=== PATIENT | female | born 1970 | race Caucasian/White ===

== ENCOUNTER → 2018-03-28 18:04 | Outpatient (CLI) | payer BC, SELFPAY | PROVIDERS: Visit Provider Family Medicine | DX: N39.0 Urinary tract infection, site not specified (principal) | CPT/HCPCS: 87086; 87088 ==

== ENCOUNTER → 2020-10-04 | Outpatient (CLI) | payer BC, SELFPAY ==
[2020-10-04 12:29] VITALS: BMI 35.2
== END | disposition home or self-care (01) ==
LOC: LABSPEC 16:09
PROVIDERS: Visit Provider Physician Assistant
DX: Z20.828 Contact with and (suspected) exposure to other viral communicable diseases (principal)
CPT/HCPCS: 87635; U0003

== ENCOUNTER 2021-01-16 16:27 | Observation (INO) | payer BC, SELFPAY ==
[2020-10-04 12:29] VITALS: BMI 35.2
[2021-01-16] VITALS (11 sets, daily range): BP systolic 129–158; BP diastolic 87–106; PULSE 75–92; RESP 16–19; TEMP 36.7–36.8; O2SAT 95–99; BMI 36.7; BMI 36.3; BMI 36.4
--- NOTE | 2021-01-16 16:30 | ED.RN ---
NO OLD EKGS
--- NOTE | 2021-01-16 16:38 | EKG12_ITS ---
Test Reason : CP Blood Pressure : / mmHG Vent. Rate : 085 BPM Atrial Rate : 085 BPM P-R Int : 162 ms QRS Dur : 086 ms QT Int : 388 ms P-R-T Axes : 048 -06 022 degrees QTc Int : 461 ms Normal sinus rhythm Normal ECG Confirmed by DAYAN RIBERA, DUDLEY ([id number]), editor dictionary MARINA WILLIS ([id number]) on 01/19/2021 10:01:49 AM Referred By: RU Confirmed By:DUDLEY HANLEY MD
--- NOTE | 2021-01-16 16:40 | ED.DCSUM_ITS ---
- ER Visit Summary Date of Service: 01/16/21 Chief Complaint: [Chest pain] History of Present Illness: The patient is a 50 F [presents to the emergency department complaint of chest pain that started around noon today. Patient developed tightness and discomfort in her left back and under her left breast wh ich initially she thought was related maybe her bra being too tight so she removed it but then started having some intermittent discomfort to the left anterior chest as well and she presents for evaluation. Patient states that she had a heart attack 6 days ago and had a stent placed at [facility] 5 days ago. Patient currently on aspirin and Brilinta which she did take today. Patient states this pain feels different than the pain she had when she got her stent. Patient is not sure which artery she got the stent in but states that she had a 95% occlusion. She denies any diaphoresis or shortness of breath. She denies nausea or vomiting. Patient denies fever or recent illness.] Physical Examination: [HEENT-PERRLA, EOMI. Cranial nerves II through XII grossly intact. TMs clear. Mucous membranes moist. No adenopathy. Cardiovascular-regular rate and rhythm without murmur or ectopy Lungs-clear to auscultation, chest wall stable without crepitus or subcu em physema Abdomen-normoactive bowel sounds, soft, nontender, no rebound or rigidity, no peritoneal signs. Extremities-intact ?4, normal range of motion, normal pulses, atraumatic] Test Results: [EKG obtained on arrival shows sinus rhythm with a ventricular rate of 85 bpm with no acute ST segment changes noted.] CBC with differential showed a white of 6.0, hemoglobin 14, hematocrit 43, placed 277. Chemistries unremarkable. Troponin is 0.032. D-dimer was 0.67. Chest x-ray 1 view obtained interpreted by myself as no acute disease process and radiology in agreement. CTA of the chest was read by radiology as right middle lobe and right lower lobe pulmonary emboli with no evidence for saddle emboli or heart strain. Emergency Department Course and Treatment: [Line established on arrival. Patient placed on traffic monitor specialist. Patient had already taken her Brilinta and aspirin today therefore none was given here.] Treatment Plan: [Case was discussed with hospitalist will evaluate patient for admission] Disposition: [Admit] Impression: [Chest pain-rule out acute coronary syndrome. Right-sided pulmonary emboli] This note was generated with [employer] dictation software. It may contain incorrect words, spelling, and punctuation that were not noted in review of the chart prior to signing ED Disposition - Plan for ED Patient: Referrals: Lon Flores MD [Primary Care Provider] -
--- NOTE | 2021-01-16 16:49 | RAD_ITS ---
EXAM: XR CHEST, 1 VIEW CLINICAL INDICATION: chest pain TECHNIQUE: Frontal view of the chest. This report was created using [employer] report generation technology. COMPARISON: None. FINDINGS: LUNGS AND PLEURAL SPACES: Unremarkable. No consolidation or edema. No pneumothorax. No effusion. HEART: Unremarkable. Cardiac silhouette not enlarged. MEDIASTINUM: Central airways and mediastinal contour are unremarkable. BONES/JOINTS: Unremarkable. SOFT TISSUES: Unremarkable. TUBES, LINES AND DEVICES: EKG leads project over the chest. RAD/Chest 1 View (Portable) IMPRESSION: No acute findings in the chest. Electronically Signed: Mohsen Kelly MD (Brooks) at 17:05 EDT , Service support ,
[2021-01-16] MEDS: 0.9% Normal Saline 1,000 ML 150 ML IV (16:55)
[2021-01-16 16:56] LABS: Absolute Neutrophil Count 3.2 X10^3/uL (2.0-7.7); Basophil# 0.04 X10^3/uL; Basophil% 0.7 % (0-1); Eosinophil# 0.12 X10^3/uL; Hematocrit 42.7 % (37-47); Hemoglobin 14.4 g/dL (12.0-15.0); Lymphocyte % 31.9 % (19-41); Mean Corp Hgb Conc 33.7 g/dL (32-36); Mean Corpuscular Hgb 29.3 pg (27.0-32.0); Mean Corpuscular Volume 86.8 fL (81-99); Mean Platelet Vol. 9.3 fl (6.2-12.0); Monocyte# 0.66 X10^3/uL; Monocyte% 11.1 % (0-10); NRBC Flagged by Analyzer 0 % (0-5); Neutrophil # 3.21 X10^3/uL (2.7-7.7); Platelet Count 277 K/mm3 (150-450); RBC Distribution Width CV 13.4 % (11.6-14.6); RBC Distribution Width SD 41.5 fl (35.1-43.9); Red Blood Count 4.92 M/mm3 (4.2-5.4)
[2021-01-16 17:15] LABS: Anion Gap 5 (5-15); BUN 14 mg/dL (7-18); BUN/Creat Ratio 16.4 RATIO (10-20); Calcium,Total 8.8 mg/dL (8.5-10.1); Chloride 104 mmol/L (98-107); Creatinine, Serum 0.86 mg/dL (0.55-1.02); EST Glomerular Filtration Rate 75 mL/min (>60); Est Glom Filt Rate - Afr Amer 91 mL/min (>60); Estimated Creatinine Clearance 63.27 ml/min; Glucose 90 mg/dL (74-106); Potassium 3.8 mmol/L (3.5-5.1); Sodium Level 137 mmol/L (136-145)
[2021-01-16 17:17] LABS: D-Dimer Quantitative (DVT/PE) 0.67 FEU/ug/m (0.27-0.49)
--- NOTE | 2021-01-16 17:33 | CT_ITS ---
EXAM: CT ANGIOGRAPHY CHEST WITHOUT AND WITH INTRAVENOUS CONTRAST CLINICAL INDICATION: Chest pressure radiating to the back that started a new today TECHNIQUE: Helically acquired angiography images were obtained of the chest without and with intravenous contrast. This CT exam was performed using one or more of the following dose reduction techniques: automated exposure control, adjustment of the mA and/or kV according to patient size, and/or use of iterative reconstruction technique. This report was created using [employer] report generation technology. MIP reconstructed images were created and reviewed. CONTRAST: IV 100mL Isovue-370 COMPARISON: None. FINDINGS: PULMONARY ARTERIES: See below. AORTA: Unremarkable. Normal in caliber. No evidence of dissection. GREAT VESSELS OF AORTIC ARCH: Unremarkable. Normal in caliber. No evidence of dissection. LUNGS AND PLEURAL SPACES: There are filling defects involving right middle and lower lobe segmental pulmonary arteries (images 92-125). No mass. No pleural effusion or thickening. No pneumothorax. HEART: Unremarkable. Heart size is normal. No pericardial effusion. No signs of right heart strain. MEDIASTINUM: Unremarkable. No mediastinal or hilar adenopathy. Esophagus is unremarkable. No hiatal hernia. THYROID: Unremarkable. No thyroid lesions. BONES/JOINTS: Degenerative changes of the lumbar spine. No suspicious lytic or blastic abnormality. CT/CTA Chest W/WO Contrast IMPRESSION: Right pulmonary embolism. No saddle embolus or CT evidence of right heart strain. N.B. : The above information has been verbally conveyed by Mohsen Kelly MD (Brooks) to Niyah Nguyen MD, on 01/16/2021 18:20:43 (ET). Electronically Signed: Mohsen Kelly MD (Brooks) at 18:22 EDT , Service support ,
--- NOTE | 2021-01-16 18:25 | PCM.HP.STD ---
Problem List (1) Acute pulmonary embolism Status: Acute Qualifiers: Pulmonary embolism type: other Acute cor pulmonale presence: unspecified Qualified Code(s): I26.99 - Other pulmonary embolism without acute cor pulmonale (2) Chest pain Status: Acute Qualifiers: Chest pain type: unspecified Qualified Code(s): R07.9 - Chest pain, unspecified (3) CAD (coronary artery disease) Status: Chronic Qualifiers: Coronary Disease-Associated Artery/Lesion type: unspecified vessel or lesion type [place] vs. transplanted heart: unspecified whether [place] or transplanted heart Associated angina: angina presence unspecified Qualified Code(s): I25.10 - Atherosclerotic heart disease of [place] coronary artery without angina pectoris (4) HTN (hypertension) Status: Chronic Qualifiers: Hypertension type: essential hypertension Qualified Code(s): I10 - Essential (primary) hypertension (5) HLD (hyperlipidemia) Status: Chronic Qualifiers: Hyperlipidemia type: unspecified Qualified Code(s): E78.5 - Hyperlipidemia, unspecified (6) Former tobacco use Status: Chronic History of Present Illness Date of Admission: 01/16/21 Chief Complaint: Chest pain The patient is a 50 y/o F w/ PMHx: CAD s/p PCI, HTN, HLD, Obesity, Former Tobacco use who presents to the [facility] ED on 01/16/21 with history of onset chest pain that began at approximately noon on day of ED presentation, described as chest tightness and discomfort usually in her left back radiating down around her left breast and eventually across both sides of her chest describing the pain as dull pressure like a muscle knot with intermittent twinges of pain across her chest rating the pain at its worst 4-10 in severity, currently improved and reports 0 out of 10 pain upon evaluation. Patient does note that pain onset at noon with a solid 3 hours of ongoing discomfort now transition following this to intermittent and now subsided. Patient with history of recent specific heart attack nearing 1 week prior with PCI at [facility] 5 days prior to current presentation compliant with both her aspirin and Brilinta but notes the pain is different than when she initially presented with her heart attack. She denies any associated diaphoresis, dyspnea, nausea or emesis. Work-up in the ED included T 98.2, heart rate 88, BP 158/106, respiratory rate 18, 99% on room air, unremarkable CBC, D-dimer 0.67, BMP unremarkable, Trop 0.032, CXR with no acute cardiopulmonary findings, EKG with sinus rhythm with no acute evidence of ischemia, CTPA acute R sided pulmonary emboli with no evidence of saddle embolis or strain. In the ED patient administered NS, NG. Past Medical History Past Medical History (Chronic Problems): Chronic Problems CAD (coronary artery disease) (Chronic) HTN (hypertension) (Chronic) HLD (hyperlipidemia) (Chronic) Former tobacco use (Chronic) Medical History: Medical History (Last Updated 10/04/20 @ 12:32 by Fanta Pedraza) Arthritis M19.90 Hay fever J30.1 Seasonal allergies J30.2 Allergies tree nut Allergy (Verified 01/16/21 16:31) unknown fresh fruit and vegetables Allergy (Uncoded 01/16/21 16:31) unknown Home Medications: Ambulatory Orders Medication Instructions Recorded Aspirin 81 mg PO DAILY 01/16/21 Atorvastatin Calcium 40 mg PO DAILY 01/16/21 Metoprolol Tartrate 25 mg PO DAILY 01/16/21 Ticagrelor [Brilinta] 90 mg PO DAILY 01/16/21 Surgical History: Surgical History (Last Updated 10/04/20 @ 12:32 by Fanta Pedraza) H/O dilation and curettage Z98.890 Surgical History: - - PCI x1, D&C, tonsillectomy. 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 Lives: Spouse/ Significant Other Smoking Status: Former smoker - Patient quit cigarette tobacco usage in 1995 noted that she started with less than 1/2 pack/day cigarette tobacco usage at the age of 18 until quitting. Tobacco Use: Non-smoker Alcohol: None Drugs: None - *Family History Maternal History Items: Cancer - Mother with history of skin cancer., Diabetes, Heart Disease - Mother with a history of [place] at age 77., - - Mother with also a history of blood clots. Paternal History Items: Cancer - Father with reported history of cancer in his colon however this was felt not to be primary., Hypertension Review of Systems Constitutional: Reports: Fatigue. Denies: Chills, Fever, Weight Change HEENT: Denies: Head Aches, Sinus Congestion, Sinus Drainage Cardiovascular: Reports: Chest Pain, Chest Pressure, Chest Tightness. Denies: Light Headedness, Orthopnea, Palpitations, Syncope Respiratory: Denies: Cough, Shortness of Breath, Shortness of breath at rest, Shortness of breath upon exertion, Sputum production Gastrointestinal: Denies: Abdominal Pain, Nausea, Vomiting Genitourinary: Denies: Dysuria Musculoskeletal: Reports: Back Pain. Denies: Joint Pain, Joint Tenderness Skin: Denies: Rash, Wounds Neurological: Denies: Numbness, Tingling, Focal weakness Psychiatric: Denies: Anxiety, Depression, Homicidal Ideations, Suicidal Ideations Hematologic/ Lymphatic: Denies: Easy Bruising, Easy Bleeding VTE Information - Inpt Only VTE Present on Admission: No VTE Mechan Device Prophylaxis: SCD's VTE Pharm Prophylaxis ordered?: Yes VTE Suspected: Suspected PE Patient Problems: Active and Suspected Problems (Last Updated 10/04/20 @ 12:32 by Fanta Pedraza) Acute pulmonary embolism (Acute) Chest pain (Acute) Subjective: Patient seated upright in the ED bed, no acute distress, notes currently chest pain is completely subsided. Objective: Physical Examination: General: awake, alert, oriented x 3 and cooperative, seated upright in the ED bed in no apparent distress. Skin: normal color, turgor, no icterus, cyanosis. HEENT: AT/NC, EOMI, PERRLA, mildly dry MM, no carotid bruits or JVD noted. Lungs: Diminished breath sounds, mildly decreased effort, no obvious distress, no rales, ronchi or wheezing. Heart: Regular rate and rhythm; no gallop, rub audible. Abdomen: soft, obese, NTTP, ND, normal BS, no HSM. Extremities: no cyanosis, clubbing, or edema. Neurological: patient awake, alert, oriented as noted; cognitive function intact; pupils equally reactive to light and accomodation; cranial nerves II-XII grossly normal, moving all 4 extremities, no focal deficits, strength mildly global decrease given acute presentation. Psychiatric: affect appears mildly fatigued otherwise normal, no acute evidence of depressive or anxiety feelings. - Physical Exam Vitals/I&O's: Vital Signs Temp Pulse Resp BP Pulse Ox 98.2 F 75 18 129/88 H 98 01/16/21 16:28 01/16/21 18:00 01/16/21 18:00 01/16/21 18:00 01/16/21 18:00 Oxygen Delivery Method Room Air Weight: 200 lb 13.458 oz Body Mass Index (BMI) 36.7 Laboratory Results 01/16/21 16:50: WBC 6.0, RBC 4.92, Hgb 14.4, Hct 42.7, MCV 86.8, MCH 29.3, MCHC 33.7, RDW Std Deviation 41.5, RDW Coeff of Trini 13.4, Plt Count 277, MPV 9.3, Immature Gran % (Auto) 0.300, Neut % (Auto) 54.0, Lymph % (Auto) 31.9, [place] % (Auto) 11.1 H, Eos % (Auto) 2.0, Baso % (Auto) 0.7, Absolute Neuts (auto) 3.2, Absolute Lymphs (auto) 1.90, Nucleated RBC % 0 01/16/21 16:50: Sodium 137, Potassium 3.8, Chloride 104, Carbon Dioxide 28.0, Anion Gap 5, BUN 14, Creatinine 0.86, Estim Creat Clear Calc 63.27, Est GFR (MDRD) Af Amer 91, Est GFR (MDRD) Non-Af 75, BUN/Creatinine Ratio 16.4, Glucose 90, Calcium 8.8, Troponin I 0.032 01/16/21 16:50: D-Dimer Quant (PE/DVT) 0.67 H* Current Medications Sodium Chloride () 1,000 mls @ 150 mls/hr IV .Q6H40M MU Last Admin: 01/16/21 16:55 Dose: 150 mls/hr Documented by: Nitroglycerin (Nitroglycerin Sl (Ed/Img/Cath) 0.4 Mg Tablet) 0.4 mg SL Q5M PRN PRN Reason: Chest pain Assessment/Plan All Active Problems (Last Updated 10/04/20 @ 12:32 by Fanta Pedraza) Acute pulmonary embolism (Acute) Chest pain (Acute) COVID-19 ruled out (Acute) The patient is a 50 y/o F w/ PMHx: CAD s/p PCI, HTN, HLD, Obesity, Former Tobacco use who presents to the [facility] ED on 01/16/21 with history of onset chest pain that began at approximately noon on day of ED presentation, described as chest tightness and discomfort usually in her left back radiating down around her left breast and eventually across both sides of her chest describing the pain as dull pressure like a muscle knot with intermittent twinges of pain across her chest rating the pain at its worst 4-10 in severity, currently improved and reports 0 out of 10 pain upon evaluation. 1. Acute chest pain secondary to Acute Pulmonary Embolism: EKG without acute findings, CXR no acute process, D-dimer elevated, CTPA with acute right-sided pulmonary emboli with no evidence of saddle embolus or strain, troponin 0.032. Will admit to PCU, maintain on cardiac telemetry, cycle cardiac enzymes given recent intervention, given no strain will defer echocardiogram at this time. Given history of miscarriages and maternal history of blood clots will obtain hypercoagulable panel and following this will initiate on therapeutic Lovenox regimen with pending AM insurance oral regimen investigation. May consider Cardiology consultation if altered EKGs, elevated cardiac enzymes or chest pain ongoing concerns. 2. CAD: Status post recent PCI of unclear artery 5 days prior to current presentation at [facility], will maintain on aspirin, Brilinta, metoprolol and atorvastatin. Records requested from [place] facility. 3. Hypertension: Continue home regimen including metoprolol with hold parameters however BP above goal upon ED presentation therefore may necessitate alteration/addition to her regimen, PRN hydralazine. 4. Hyperlipidemia: Continue home statin regimen. AM FLP. 5. Obesity: Weight loss and lifestyle changes encouraged. 6. Former tobacco use: Encourage continued tobacco cessation. 7. DVT prophylaxis: SCDs, Lovenox. OBSV E&M: [id number] Initial observation care L3
--- NOTE | 2021-01-16 20:00 | EKG12_ITS ---
Test Reason : AM EKG Blood Pressure : / mmHG Vent. Rate : 068 BPM Atrial Rate : 068 BPM P-R Int : 174 ms QRS Dur : 088 ms QT Int : 416 ms P-R-T Axes : 047 002 008 degrees QTc Int : 442 ms Normal sinus rhythm Normal ECG When compared with ECG of 16-JAN-2021 20:03, MANUAL COMPARISON REQUIRED, DATA IS UNCONFIRMED Confirmed by DAYAN RIBERA, DUDLEY ([id number]), photo editor MARINA WILLIS ([id number]) on 01/19/2021 10:22:15 AM Referred By: DR GARDINER Confirmed By:DUDLEY HANLEY MD
[2021-01-16 20:02] LABS: Partial Thromboplast Time 30.8 Seconds (24.1-36.2); Prothrombin Time (Protime)PT. 12.8 SECONDS (11.7-14.9)
[2021-01-16 20:07] LABS: BNP,B-Type NATRIURETIC PEPTIDE 5.1 pg/mL (0-100)
[2021-01-16] MEDS: 0.9% Normal Saline 1,000 ML 100 ML IV (20:09)
[2021-01-16] MEDS: 0.9% Saline Lock 10 ML Syringe IV (20:10)
[2021-01-16 20:19] LABS: Magnesium 1.8 mg/dL (1.6-2.6)
[2021-01-16] MEDS: Enoxaparin 100 MG/ML Syringe 90 MG SC (21:07)
[2021-01-16] MEDS: Pantoprazole Sodium 40 MG Tablet PO (21:07)
[2021-01-16] MEDS: Atorvastatin Calcium 40 MG Tablet PO (22:33)
[2021-01-16] MEDS: TICAGRELOR 90 MG TABLET PO (22:33)
[2021-01-16] MEDS: Metoprolol Tartrate 25 MG Tablet PO (22:33)
[2021-01-17] VITALS (7 sets, daily range): BP systolic 126–140; BP diastolic 84–85; PULSE 69–76; RESP 16–18; TEMP 36.4–36.6; O2SAT 96–97
--- NOTE | 2021-01-17 05:55 | EKG12_ITS ---
Test Reason : CP ADMIT Blood Pressure : / mmHG Vent. Rate : 072 BPM Atrial Rate : 072 BPM P-R Int : 164 ms QRS Dur : 084 ms QT Int : 394 ms P-R-T Axes : 044 000 007 degrees QTc Int : 431 ms Normal sinus rhythm Normal ECG When compared with ECG of 16-JAN-2021 16:33, MANUAL COMPARISON REQUIRED, DATA IS UNCONFIRMED Confirmed by DAYAN RIBERA, DUDLEY ([id number]), video news editor MARINA WILLIS ([id number]) on 01/19/2021 10:22:39 AM Referred By: DR GARDINER Confirmed By:DUDLEY HANLEY MD
[2021-01-17 06:02] LABS: Absolute Lymphocyte Count 1.67 X10^3/uL (0.83-4.51); Absolute Neutrophil Count 2.5 X10^3/uL (2.0-7.7); Basophil# 0.03 X10^3/uL; Basophil% 0.6 % (0-1); Eosinophils% 2.1 % (0-5); Hematocrit 43.4 % (37-47); Lymphocyte # 1.67 X10^3/ul (4.0); Lymphocyte % 34.9 % (19-41); Mean Corp Hgb Conc 32.3 g/dL (32-36); Mean Corpuscular Hgb 28.7 pg (27.0-32.0); Mean Corpuscular Volume 89.1 fL (81-99); Mean Platelet Vol. 9.6 fl (6.2-12.0); Monocyte# 0.49 X10^3/uL; Monocyte% 10.2 % (0-10); NRBC Flagged by Analyzer 0 % (0-5); Neutrophil # 2.49 X10^3/uL (2.7-7.7); Platelet Count 268 K/mm3 (150-450); RBC Distribution Width CV 13.3 % (11.6-14.6); RBC Distribution Width SD 43.4 fl (35.1-43.9); Red Blood Count 4.87 M/mm3 (4.2-5.4); White Blood Count 4.8 K/mm3 (4.4-11.0)
[2021-01-17 06:25] LABS: ALB/GLOB Ratio 0.7 RATIO (0.9-2.4); AST(SGOT) 37 U/L (15-37); Alanine Aminotransfer ALT/SGPT 37 U/L (13-56); Albumin, Serum 2.7 g/dL (3.2-5.0); Alkaline Phosphatase 57 U/L (45-117); Anion Gap 5 (5-15); BUN 9 mg/dL (7-18); BUN/Creat Ratio 11.8 RATIO (10-20); Chloride 110 mmol/L (98-107); Creatinine, Serum 0.76 mg/dL (0.55-1.02); EST Glomerular Filtration Rate 86 mL/min (>60); Est Glom Filt Rate - Afr Amer 103 mL/min (>60); Glucose 104 mg/dL (74-106); Potassium 3.6 mmol/L (3.5-5.1); Protein, Total 6.7 g/dL (6.4-8.2); Sodium Level 139 mmol/L (136-145)
[2021-01-17] MEDS: TICAGRELOR 90 MG TABLET PO (08:57)
[2021-01-17] MEDS: Metoprolol Tartrate 25 MG Tablet PO (08:57)
[2021-01-17] MEDS: Pantoprazole Sodium 40 MG Tablet PO (08:57)
[2021-01-17] MEDS: Aspirin 81 MG TAB.CHEW PO (08:57)
[2021-01-17] MEDS: Enoxaparin 100 MG/ML Syringe 90 MG SC (08:58)
--- NOTE | 2021-01-17 10:39 | DCINST_ITS ---
- Discharge Diagnoses Current Active Problems: Current Active and Chronic Problems Acute pulmonary embolism (Acute) Chest pain (Acute) CAD (coronary artery disease) (Chronic) HTN (hypertension) (Chronic) HLD (hyperlipidemia) (Chronic) Former tobacco use (Chronic) You will use the following diet at home:: Cardiac Discharge Activity: Return to Normal Activity Call your doctor if you observe: Shortness of breath, Dizziness, Fainting spells, Chest pain Allergies/Adverse Reactions: Allergies tree nut Allergy (Verified 01/16/21 20:01) unknown fresh fruit and vegetables Allergy (Uncoded 01/16/21 20:01) unknown Medications to take at Discharge Aspirin 81 mg PO DAILY 01/16/21 Atorvastatin Calcium 40 mg PO QHS 01/16/21 Metoprolol Tartrate 25 mg PO BID 01/16/21 Ticagrelor [Brilinta] 90 mg PO BID 01/16/21 Apixaban [Eliquis] 10 mg PO BID #70 tab 01/17/21 Pantoprazole Sodium [Protonix] 40 mg PO DAILY #30 tab 01/17/21 The following prescriptions were given: Apixaban [Eliquis] 10 mg PO BID #70 tab Transmission Status: Pending to [facility]/pharmacy #[id number] Pantoprazole Sodium [Protonix] 40 mg PO DAILY #30 tab Transmission Status: Pending to [facility]/pharmacy #[id number] Primary Care Physician: Lon Flores MD [Primary Care Provider] - Please follow up with your Primary Care Physician in: 1 Week Test Results: Test results from this visit will be discussed in further detail at your follow- up appointment, if applicable. Please Follow Up With: Anibal Rojas MD - Hematology When: 4-6 Weeks Please Follow Up With: Primary Cardiogist When: As scheduled Proposed Discharge Date: 01/17/21
--- NOTE | 2021-01-17 10:42 | DS.PCM_ITS ---
<Giselle Jackson FUNNEL SETTER - Last Filed: 01/17/21 10:57> Discharge Date and Diagnosis - Problem List Patient Problems: Active and Suspected Problems (Last Updated 10/04/20 @ 12:32 by Fanta Pedraza) Acute pulmonary embolism (Acute) Chest pain (Acute) Date of Admission: 01/16/21 Date of Discharge: 01/17/21 - Primary Discharge Diagnosis Acute Problems: Active Problems (Last Updated 10/04/20 @ 12:32 by Fanta Pedraza) 1. Acute pulmonary embolism 2. CAD with recent PCI 3. Hypertension 4. Hyperlipidemia 5. Obesity 6. Former tobacco use - Secondary Discharge Diagnosis Chronic Problems: Chronic Problems CAD (coronary artery disease) (Chronic) HTN (hypertension) (Chronic) HLD (hyperlipidemia) (Chronic) Former tobacco use (Chronic) Hospital Course and Treatment Imaging Results: Diagnostic Data Chest X-Ray 01/16/21 16:49 IMPRESSION: No acute findings in the chest. Electronically Signed: Mohsen Kelly MD (Brooks) at 17:05 EDT , Service support , Chest CTA 01/16/21 17:33 IMPRESSION: Right pulmonary embolism. No saddle embolus or CT evidence of right heart strain. N.B. : The above information has been verbally conveyed by Mohsen Kelly MD (Brooks) to Niyah Nguyen MD, on 01/16/2021 18:20:43 (ET). Electronically Signed: Mohsen Kelly MD (Brooks) at 18:22 EDT , Service support , ADDENDUM: 01/16/21 1829 IMPRESSION: Right pulmonary embolism. No saddle embolus or CT evidence of right heart strain. N.B. : The above information has been verbally conveyed by Mohsen Kelly MD (Brooks) to Niyah Nguyen MD, on 01/16/2021 18:20:43 (ET). Electronically Signed: Mohsen Kelly MD (Brooks) at 18:22 EDT , Service support , Operations: None Procedures: None Summary of Care Provided: The patient is a 50 year old F admitted 01/16/2021 due to chest pain. 1. Acute pulmonary embolism- CTA showed right pulmonary embolism, no saddle embolus or evidence of right heart strain. Initiated on Eliquis 10 mg twice daily for 7 days followed by 5 mg daily. Patient was referred to hematology given history of miscarriages and maternal history of blood clots. Hypercoagulable panel pending. Oxygen stable on room air. Placed on GI prophylaxis with Protonix given addition of Eliquis along with aspirin and Brilinta. Follow-up with PCP in 1 week. Follow-up with hematology in 4 to 6 weeks. 2. CAD with recent PCI-recent PCI 5 days prior to admission. Continue aspirin, Brilinta, metoprolol, atorvastatin. Follow-up with cardiology as scheduled. 3. Hypertension-stable, continue metoprolol. 4. Hyperlipidemia-continue statin. 5. Obesity-encouraged diet lifestyle modifications. 6. Former tobacco use- encouraged continued cessation. Patient seen and examined prior to discharge. Physical assessment as noted below. Patient is stable for discharge with follow up recommendations as noted above. This patient was seen by PERLA Fong under the supervision of Dr. Singer. Patient Problems: Active and Suspected Problems (Last Updated 10/04/20 @ 12:32 by Fanta Pedraza) Acute pulmonary embolism (Acute) Chest pain (Acute) - Physical Exam Vitals/I&O's: Vital Signs Temp Pulse Resp BP Pulse Ox 97.6 F L 76 16 126/84 H 97 01/17/21 08:55 01/17/21 08:57 01/17/21 08:55 01/17/21 08:57 01/17/21 08:55 Oxygen Delivery Method Room Air Weight: 199 lb 1.239 oz Body Mass Index (BMI) 36.3 Intake and Output for Last 24 Hours 01/15/21 01/16/21 01/17/21 22:59 23:59 23:59 Intake Total 716.67 / 716.67 Balance 716.67 / 716.67 General: Alert, Oriented x3, Cooperative HEENT: Atraumatic, PERRLA, EOMI, Normocephalic Neck: Supple, No JVD, Negative Carotid Bruits Lungs: Clear to auscultation, Normal air movement Cardiovascular: Regular rate, No murmurs Abdomen: Bowel Sounds Present, Soft, Non Tender Extremities: No clubbing, No cyanosis, No edema, Capillary Refill Less than 3 Seconds Skin: No rashes, No breakdown Musculoskeletal: No Tenderness to Palpation of Joints or Extremities Neurological: Cranial nerves II-XII grossly intact, Neuro grossly intact Psych/Mental Status: Normal Affect, Appropriate Laboratory Results 01/16/21 16:50: WBC 6.0, RBC 4.92, Hgb 14.4, Hct 42.7, MCV 86.8, MCH 29.3, MCHC 33.7, RDW Std Deviation 41.5, RDW Coeff of Trini 13.4, Plt Count 277, MPV 9.3, Immature Gran % (Auto) 0.300, Neut % (Auto) 54.0, Lymph % (Auto) 31.9, [place] % (Auto) 11.1 H, Eos % (Auto) 2.0, Baso % (Auto) 0.7, Absolute Neuts (auto) 3.2, Absolute Lymphs (auto) 1.90, Nucleated RBC % 0 01/16/21 16:50: Sodium 137, Potassium 3.8, Chloride 104, Carbon Dioxide 28.0, Anion Gap 5, BUN 14, Creatinine 0.86, Estim Creat Clear Calc 63.27, Est GFR (MDRD) Af Amer 91, Est GFR (MDRD) Non-Af 75, BUN/Creatinine Ratio 16.4, Glucose 90, Calcium 8.8, Troponin I 0.032 01/16/21 16:50: D-Dimer Quant (PE/DVT) 0.67 H* 01/16/21 16:50: B-Natriuretic Peptide 5.1 01/16/21 19:15: PT 12.8, INR 1.0, APTT 30.8 01/16/21 19:15: Protein C Antigen Pending, Functional Protein C Pending, Prot C Funct Activity Pending, Antithrombin III Ag Pending, Func Antithrombin III Pending, Factor V Leiden Mutat Pending, Beta-2-GPI IgG Ab Pending, Beta-2-GPI IgA Ab Pending, Beta-2-GPI IgM Ab Pending, Anti-Cardiolipin IgG Ab Pending, Anti-Cardiolipin IgM Ab Pending, Factor II DNA Analysis Pending 01/16/21 20:00: Magnesium 1.8 01/16/21 20:00: Troponin I 0.034 01/16/21 22:58: Troponin I 0.037 01/17/21 05:20: WBC 4.8, RBC 4.87, Hgb 14.0, Hct 43.4, MCV 89.1, MCH 28.7, MCHC 32.3, RDW Std Deviation 43.4, RDW Coeff of Trini 13.3, Plt Count 268, MPV 9.6, Immature Gran % (Auto) 0.200, Neut % (Auto) 52.0, Lymph % (Auto) 34.9, [place] % (Auto) 10.2 H, Eos % (Auto) 2.1, Baso % (Auto) 0.6, Absolute Neuts (auto) 2.5, Absolute Lymphs (auto) 1.67, Nucleated RBC % 0 01/17/21 05:20: Sodium 139, Potassium 3.6, Chloride 110 H, Carbon Dioxide 24.0, Anion Gap 5, BUN 9, Creatinine 0.76, Estim Creat Clear Calc 71.60, Est GFR (MDRD) Af Amer 103, Est GFR (MDRD) Non-Af 86, BUN/Creatinine Ratio 11.8, Glucose 104, Calcium 8.0 L, Total Bilirubin 0.40, AST 37, ALT 37, Alkaline Phosphatase 57, Total Protein 6.7, Albumin 2.7 L, Globulin 4.0, Albumin/Globulin Ratio 0.7 L Current Medications Acetaminophen (Acetaminophen 325 Mg Tablet) 650 mg PO Q6H PRN PRN PRN Reason: Pain Score 1-10/Temp > 100.7 F Al Hydroxide/Mg Hydroxide (Mag Hydrox/Al Hydrox/Simeth 30 Ml Udc) 30 ml PO Q6H PRN PRN PRN Reason: Gastric Burning Albuterol Sulfate (Albuterol 2.5 Mg/3 Ml Vial.Neb.) 2.5 mg INHALATION Q2H PRN PRN PRN Reason: Dyspnea, wheezing Aspirin ([facility] 81 Mg Tab.Chew) [facility] Last Admin: 01/17/21 08:57 Dose: 81 mg Documented by: Atorvastatin Calcium (Atorvastatin Calcium 40 Mg Tablet) 40 mg PO QHS [facility] Last Admin: 01/16/21 22:33 Dose: 40 mg Documented by: Enoxaparin Sodium (Enoxaparin 100 Mg/Ml Syringe) 90 mg SC Q12 [facility] Last Admin: 01/17/21 08:58 Dose: 90 mg Documented by: Guaifenesin (Guaifenesin 10 Ml Udc (200mg/10ml)) 20 ml PO Q4H PRN PRN PRN Reason: COUGH Hydralazine HCl (Hydralazine 20 Mg/Ml Vial) 10 mg IV Q4H PRN PRN PRN Reason: SBP > 160 Sodium Chloride () 250 mls @ 15 mls/hr IV .[id number] PRN PRN Reason: Saline Flush Sodium Chloride () 250 mls @ 15 mls/hr IV .[id number] PRN PRN Reason: Additional IVPB Infusion Magnesium Hydroxide (Magnesium Hydroxide 30 Ml Udc) 30 ml PO DAILY PRN PRN PRN Reason: Constipation Metoprolol Tartrate (Metoprolol Tartrate 25 Mg Tablet) 25 mg PO BID [facility] Last Admin: 01/17/21 08:57 Dose: 25 mg Documented by: Morphine Sulfate (Morphine 2 Mg/Ml Syringe) 2 mg IV Q3H PRN PRN PRN Reason: Pain Score 6-10 Nitroglycerin (Nitroglycerin (Inpatient Use) 0.4 Mg Tab.Subl) 0.4 mg SL Q5M PRN PRN Reason: CARDIAC/CHEST PAIN Ondansetron HCl (Ondansetron 4 Mg/2 Ml Vial) 4 mg IV Q8H PRN PRN PRN Reason: NAUSEA/VOMITING Oxycodone HCl (Oxycodone 5 Mg Tablet) 5 mg PO Q4H PRN PRN PRN Reason: Pain Score 4-5 Pantoprazole Sodium (Pantoprazole Sodium 40 Mg Tablet) 40 mg PO BID [facility] Last Admin: 01/17/21 08:57 Dose: 40 mg Documented by: Prochlorperazine Edisylate (Prochlorperazine 10 Mg/2 Ml Vial) 5 mg IV Q4H PRN PRN PRN Reason: Breakthrough Nausea/Vomiting Psyllium Hydrophilic Mucilloid (Psyllium 1 Packet) 1 packet PO DAILY PRN PRN PRN Reason: Constipation Senna/Docusate Sodium (Senna/Docusate Sodium 1 Tablet) 2 tablet PO BID PRN PRN PRN Reason: Constipation Sodium Chloride (0.9% Saline Lock 10 Ml Syringe) 10 - 40 ml IV UD PRN PRN Reason: SALINE FLUSH Last Admin: 01/16/21 20:10 Dose: 10 ml Documented by: Temazepam (Temazepam 15 Mg Capsule) 15 mg PO QHS PRN PRN PRN Reason: INSOMNIA Throat Lozenges (Benzocaine/Menthol 1 Lozenge) 1 lozenge MUCOUS MEM Q2H PRN PRN PRN Reason: SORE THROAT Ticagrelor (Ticagrelor 90 Mg Tablet) 90 mg PO BID [facility] Last Admin: 01/17/21 08:57 Dose: 90 mg Documented by: Discharge Diet: Low fat/ Low Cholesterol Discharge Activity: Return to Normal Activity Call your doctor if you observe: Shortness of breath, Dizziness, Fainting spells, Chest pain Home Medications: Medications to take at Discharge Aspirin 81 mg PO DAILY 01/16/21 Atorvastatin Calcium 40 mg PO QHS 01/16/21 Metoprolol Tartrate 25 mg PO BID 01/16/21 Ticagrelor [Brilinta] 90 mg PO BID 01/16/21 Apixaban [Eliquis] 10 mg PO BID #70 tab 01/17/21 Pantoprazole Sodium [Protonix] 40 mg PO DAILY #30 tab 01/17/21 Following Prescriptions Were Given to Patient: Apixaban [Eliquis] 10 mg PO BID #70 tab Transmission Status: Received by [facility]/pharmacy #[id number] Pantoprazole Sodium [Protonix] 40 mg PO DAILY #30 tab Transmission Status: Received by [facility]/pharmacy #[id number] Primary Care Physician: Lon Flores MD [Primary Care Provider] - Please follow up with your Primary Care Physician in: 1 Week Please Follow Up With: Anibal Rojas MD - Hematology When: 4-6 Weeks Please Follow Up With: Primary Cardiogist When: As scheduled Disposition: Home Minutes spent on discharge:: 35 Patient Condition:: Stable Medical Necessity - Tobacco Use Smoking Status: Former smoker Tobacco Use: Non-smoker Meaningful Use Info Meaningful Use Diagnoses (Choose all that apply): VTE - VTE Anticoag overlap given w/in hospital stay or rx'd at nm?: Yes Pt receive overlap for 5 days?: Yes <Wayne Singer F - Last Filed: 01/17/21 15:12> Discharge Date and Diagnosis - Primary Discharge Diagnosis Acute Problems: Active Problems (Last Updated 10/04/20 @ 12:32 by Fanta Pedraza) Acute pulmonary embolism (Acute) Chest pain (Acute) - Secondary Discharge Diagnosis Chronic Problems: Chronic Problems CAD (coronary artery disease) (Chronic) HTN (hypertension) (Chronic) HLD (hyperlipidemia) (Chronic) Former tobacco use (Chronic) Hospital Course and Treatment Summary of Care Provided: The patient is a 50 year old F [] - Physical Exam Vitals/I&O's: Vital Signs Temp Pulse Resp BP Pulse Ox 97.6 F L 76 16 126/84 H 97 01/17/21 10:53 01/17/21 10:53 01/17/21 10:53 01/17/21 10:53 01/17/21 10:53 Oxygen Delivery Method Room Air Weight: 199 lb 1.239 oz Body Mass Index (BMI) 36.3 Intake and Output for Last 24 Hours 01/15/21 01/16/21 01/17/21 22:59 23:59 23:59 Intake Total 716.67 / 716.67 Balance 716.67 / 716.67 Laboratory Results 01/16/21 16:50: WBC 6.0, RBC 4.92, Hgb 14.4, Hct 42.7, MCV 86.8, MCH 29.3, MCHC 33.7, RDW Std Deviation 41.5, RDW Coeff of Trini 13.4, Plt Count 277, MPV 9.3, Immature Gran % (Auto) 0.300, Neut % (Auto) 54.0, Lymph % (Auto) 31.9, [place] % (Auto) 11.1 H, Eos % (Auto) 2.0, Baso % (Auto) 0.7, Absolute Neuts (auto) 3.2, Absolute Lymphs (auto) 1.90, Nucleated RBC % 0 01/16/21 16:50: Sodium 137, Potassium 3.8, Chloride 104, Carbon Dioxide 28.0, Anion Gap 5, BUN 14, Creatinine 0.86, Estim Creat Clear Calc 63.27, Est GFR (MDRD) Af Amer 91, Est GFR (MDRD) Non-Af 75, BUN/Creatinine Ratio 16.4, Glucose 90, Calcium 8.8, Troponin I 0.032 01/16/21 16:50: D-Dimer Quant (PE/DVT) 0.67 H* 01/16/21 16:50: B-Natriuretic Peptide 5.1 01/16/21 19:15: PT 12.8, INR 1.0, APTT 30.8 01/16/21 19:15: Protein C Antigen Pending, Functional Protein C Pending, Prot C Funct Activity Pending, Antithrombin III Ag Pending, Func Antithrombin III Pending, Factor V Leiden Mutat Pending, Beta-2-GPI IgG Ab Pending, Beta-2-GPI IgA Ab Pending, Beta-2-GPI IgM Ab Pending, Anti-Cardiolipin IgG Ab Pending, Anti-Cardiolipin IgM Ab Pending, Factor II DNA Analysis Pending 01/16/21 20:00: Magnesium 1.8 01/16/21 20:00: Troponin I 0.034 01/16/21 22:58: Troponin I 0.037 01/17/21 05:20: WBC 4.8, RBC 4.87, Hgb 14.0, Hct 43.4, MCV 89.1, MCH 28.7, MCHC 32.3, RDW Std Deviation 43.4, RDW Coeff of Trini 13.3, Plt Count 268, MPV 9.6, Immature Gran % (Auto) 0.200, Neut % (Auto) 52.0, Lymph % (Auto) 34.9, [place] % (Auto) 10.2 H, Eos % (Auto) 2.1, Baso % (Auto) 0.6, Absolute Neuts (auto) 2.5, Absolute Lymphs (auto) 1.67, Nucleated RBC % 0 01/17/21 05:20: Sodium 139, Potassium 3.6, Chloride 110 H, Carbon Dioxide 24.0, Anion Gap 5, BUN 9, Creatinine 0.76, Estim Creat Clear Calc 71.60, Est GFR (MDRD) Af Amer 103, Est GFR (MDRD) Non-Af 86, BUN/Creatinine Ratio 11.8, Glucose 104, Calcium 8.0 L, Total Bilirubin 0.40, AST 37, ALT 37, Alkaline Phosphatase 57, Total Protein 6.7, Albumin 2.7 L, Globulin 4.0, Albumin/Globulin Ratio 0.7 L Addendum: Dr. Singer I personally examined the patient and reviewed the chart. I agree with the above. 50-year-old female who was recently admitted to the outside hospital for stent secondary to a non-STEMI presents to the hospital with chest pain. She was found to have a PE on CTA. She is feeling better today and states that the chest pain is much improved. She denies any shortness of breath. In discussion with her about her history she does have a history of miscarriages and her mother did have a history of blood clots in her lower extremities. She states that her sister had difficulty getting but she is unsure as to why but did finally get at the age of 40. She is currently tolerating Eliquis however she is also on aspirin and Brilinta as well secondary to her new stent therefore I do recommend that she follow-up with hematology as an outpatient. I did discuss with her the bleeding risk of being on 2 antiplatelets as well as the Eliquis and hopefully after a year she will be able to discontinue one of the antiplatelets and continue with the Eliquis indefinitely. Hypercoagulable panel was obtained on admission in the ER which would be followed up as an outpatient by her PCP and/or hematology. OBSV E&M: [id number] Observation care discharge
--- NOTE | 2021-01-17 11:49 | CASEMGMT ---
Pt to be sent home on Eliquis at discharge and med e-scribed to [facility] previously. Call to [facility] to get coverage/co-pay at this time and per pharmacist, pt's co-pay is $50 at this time. Pt provided with a 30 day free trial card and $10 co-pay card at this time. Pt voices no further questions/concerns/needs and ready for discharge at this time. SStliborio HERNANDEZ CM
--- NOTE | 2021-01-17 11:58 | PHA.DC.MC ---
Pharmacy Service has performed discharge medication reconciliation and counseling for this patient. 1. APIXABAN 10MG PO BID X 7 DAYS, THEN 5MG PO BID THEREAFTER 2. PANTOPRAZOLE 40MG PO DAILY The patient's discharge medication list was reviewed for discrepancies and discrepancies were resolved. Home Medications Aspirin 81 mg PO DAILY 01/16/21 Atorvastatin Calcium 40 mg PO QHS 01/16/21 Metoprolol Tartrate 25 mg PO BID 01/16/21 Ticagrelor [Brilinta] 90 mg PO BID 01/16/21 Apixaban [Eliquis] 10 mg PO BID #70 tab 01/17/21 Pantoprazole Sodium [Protonix] 40 mg PO DAILY #30 tab 01/17/21 The patient was counseled on the following discharge medications and changes in medications for homegoing were reviewed. The Reason for Use, instructions for use, and potential side effects were reviewed for all new medications. The patient's questions regarding all of their medications were answered. The patient was able to verbally demonstrate an understanding of their discharge medications.
[2021-01-21 12:08] LABS: Protein C Antigen 80 % (60-150); Protein C, Functional 98 % (73-180)
[2021-01-21 13:05] LABS: Anti-Cardiolipin Ab, IgG, Qn < 9 GPL U/mL (0-14); Anti-Cardiolipin Ab, IgM, Qn 12 MPL U/mL (0-12); Anti-Thrombin 3 AG, Immunol 59 % (72-124); Antithrombin 3 Function 81 % (75-135); Beta-2-Glycoprotein I IgA <9 (0-25); Beta-2-Glycoprotein I IgG <9 (0-20); Beta-2-Glycoprotein I IgM 11 (0-32)
== END 2021-01-17 10:40 | disposition home or self-care (01) ==
LOC: ED 17:07 → PCU 18:56
PROVIDERS: Admitting Provider Family Medicine; Emergency Provider Emergency Medicine; PCP Family Medicine; Visit Provider Family Medicine
DX: I26.99 Other pulmonary embolism without acute cor pulmonale (principal); I25.10 Atherosclerotic heart disease of native coronary artery without angina pectoris; I10 Essential (primary) hypertension; E78.5 Hyperlipidemia, unspecified; E66.9 Obesity, unspecified; I25.2 Old myocardial infarction; M19.90 Unspecified osteoarthritis, unspecified site; Z87.891 Personal history of nicotine dependence; Z79.899 Other long term (current) drug therapy; Z79.82 Long term (current) use of aspirin; Z68.36 Body mass index [BMI] 36.0-36.9, adult
CPT/HCPCS: 36415; 71045; 71275; 80048; 80053; 81240; 81241; 83735; 83880; 84484; 85025; 85300; 85301; 85302; 85303; 85379; 85610; 85730; 86146; 86147; 93005; 96360; 96361; 96372; 99218; 99251; 99284; J7030; Q9967; A4216; G0378; G0463

== ENCOUNTER → 2021-04-25 09:00 | Outpatient (CLI) | payer BC, SELFPAY ==
[2021-02-08 15:44] VITALS: BMI 35.6
[2021-04-25 09:52] LABS: D-Dimer Quantitative (DVT/PE) 0.31 FEU/ug/m (0.27-0.49)
== END ==
PROVIDERS: PCP Family Medicine; Visit Provider Internal Medicine Hematology & Oncology
DX: I26.99 Other pulmonary embolism without acute cor pulmonale (principal)
CPT/HCPCS: 36415; 85379

== ENCOUNTER → 2021-05-12 16:48 | Outpatient (CLI) | payer BC, SELFPAY ==
[2021-05-12 15:37] VITALS: BMI 38.5
== END ==
PROVIDERS: PCP Family Medicine; Referring Provider Internal Medicine Hematology & Oncology; Visit Provider Internal Medicine Hematology & Oncology
DX: I26.99 Other pulmonary embolism without acute cor pulmonale (principal)
CPT/HCPCS: 36415

== ENCOUNTER → 2021-05-30 12:56 | Outpatient (CLI) | payer BC, SELFPAY ==
[2021-05-12 15:37] VITALS: BMI 38.5
[2021-05-24 15:32] VITALS: BMI 37.1
--- NOTE | 2021-05-30 13:08 | PCM.CR.ITP ---
Diagnosis - General Information Admitting Diagnosis: PCI w/cornary stenting Secondary Diagnosis: NSTEMI, HTN, HLD, ASHD, other pulmonary embolism without acute cor pulmonale Personal Learning Style:: Audio/Visual, Demonstration, Group, Individual Preference, Written Barriers to Learning: Vision Impairment Gave educational material for:: Treating Heart Disease, Emotions & Heart Disease, Stress Management & Relaxation, Sleep Disorders & Heart Disease, How The Heart Works, What it means to have Heart Disease, How Coronary Artery Disease is Diagnosed, Heart Procedures, What Heart Medications Do, Risk Factors & Modifications, Living an Active Life, Nutrition - Education/Goals Individual Counseling: Initial Assessment: Abnormal Cholesterol Levels, High Blood Pressure, Overweight/Obesity Cardiac Rehabilitation Goals: 1. Maintain the individual as the primary focus of care. 2. To improve the patient's quality of life. 3. Identification of cardiac risk factors and provide cardiac risk factor management. 4. Enhance the psychosocial status of the patient. 5. Reconditioning enough to allow the patient to resume customary activities. 6. Control symptoms of cardiac disease Personal Goals: Initial Assessment: Improve energy level, Improve muscle strength and endurance, Control risk factors (learn risk factor modification) Scale for measuring improvement of personal goals: Enter appropriate number in Comments. 2 = Unchanged. 3 = Slightly Better. 4 = Moderate Improvement. 5 = Met my Goal - Diagnosis & Disease Process Outcomes/Goals: Pt IDs own risk factors & lifestyle modifications by Session 10, Verbalizes symptoms of angina & response by session 3., Pt independently manages Plan/Interventions: Assist Pt to ID & engage in lifestyle modification to reduce CVD risk, Instruct on individual risk factors, Review symptoms of angina & emergency actions, Review secondary diagnosis & identify educational needs. - Safety Referral to Physical Therapy: No Referral to [facility] Case Management: No Fall Risk Assessed:: Yes Assistive Devices:: None Exercise - Initial Assessment - Visit Date of Eval: 05/30/21 Session #:: 0 - Pre-cardiac rehab Mets: Pre-: >7 METS for 30 minutes by discharge - Physician Prescribed Exercise Modalities: Treadmill, Rower, Airdyne, NuStep Frequency: 3x/week for 12 weeks [36 sessions] Intensity: 60-80% of age predicted maximum heart rate reserve Current METSs:: 3.5 Target Heart Rate:: 111-146 Resting Blood Pressure: 108/72 EKG Type: Sinus Rhythm - Outcomes & Goals Goals:: Verbalizes understanding of THR, RPE & goal METS by session 6, Documents in home exercise log/reports 30 min aerobic 5 day/wk by DC, Demonstrates accurate pulse taking by DC - Intervention & Plan Exercise Program Goals: Instruct on personal THR & RPE, Instruct on MET level & personal MET goal, Show patient to take own pulse /validate performance until accurate, Instruct on home exercise - Physical Activity Home Exercise Physical Activity - Home Exercise: Safe Exercise, Warm-up, Self-monitoring, Cool-Down, Home Exercise > 30 min Daily, Sitting Time <3 hours/daily - Outcomes & Goals Outcomes/Goals: Demonstrates correct Warm-up/exercise Cool-Down (S3) if = 2.5 METs, Verbalizes symptoms of exercise intolerance by Session 3 (S3), Demonstrate safe equipment use (S3) & follows exercise prescrition (6) - Intervention & Plan Plan/Intervention: Instruct warm-up & cool-down if exercising at > 2 METs, Instruct on symptoms of exercise intolerance & actions to take, Instruct & monitor on saf, Assess intial functional capacity & safety risk Nutrition - Initial Assessment - Program Goals Nutrition Program Goals: LDL <100 optimal. 100 - 129 Near optimal. 130 - 159 Borderline High. 160 - 189 High. Total Cholesterol <200 desirable. 200 - 239 Borderline High. >/= 240 High. HDL < 40 Low >/=60 High. Triglycerides <150 desirable. <199 optimal. VlDL 5 - 40. HgbA1C <7%. BMI <25 Patient has diagnosis of Hyperlipidemia (ICD E78)?: Yes - Visit Date of Assessment:: 05/30/21 Session #:: 0 - Precardiac rehab evaluation - Cholesterol/Lipids Triglycerides (mg/dL): 0 - No labs available Determine presence & major risk factors that modify LDL goal: Hypertension or hypertensive medication, Age men > 45 years; women >/= 55 years Outcomes/Goals: Pt IDs own risk factors & lifestyle modifications by Session 10, Verbalizes symptoms of angina & response by session 3., Pt independently manages Intervention/Plan: Instruct on personal lipid levels & lipid goals/NCEP guidelines, Instruct on cholesterol Referral to dietitian:: Yes - Diabetes (Other Core Measures) Diabetes Type: Not Applicable - Weight Mgt (Other Care) Not Applicable: No Height: 5 ft 2 in Weight:: 210 lb BMI: 38.4 Diagnosis Overweight/Obesity BMI> 30% ICD-10 E66: Yes Diagnosis High BMI/Morbid Obesity BMI> 35% ICD-10 Z68: Yes Outcomes/Goals: Pt sets, maintains & shows weight loss goal & trend during rehab Intervention/Plan: Instruct on ideal BMI & set weight loss goal w/patient, Assist pt to ID & incorporate diet changes for weight loss by S9, Refer to Structured Weight Loss program as appropriate, Encourage goal of using 250-300dcal per session for weight loss - Healthy Eating Habits Will attend diet classes:: Yes Outcomes/Goals:: Consume diet rich in vegs,fruits,whole grain/high fiber,fish,lean meat, Limit sat/trans fats,cholesterol & added salts & sugars Intervention/Plan:: Assess current eating habits Nutrition - 30-Day Assessment Nutrition - 60-Day Assessment Nutrition - 90-Day Assessment Nutrition - Final Assessment Medical - Initial Assessment - Visit Date of Eval: 05/30/21 Session #:: 0 - Pre-cardiac rehab evauation - Medication Compliance Preventative Medication(s):: Aspirin, Ticagrelor/P2Y12 inhibitor, Statin/lipid, Beta flavio H/O mental health issues: depression, anxiety, or addiction?: No Doesn?t believe in the benefits of treatment?: No Believes medications are unnecessary or harmful?: No Has a concern about medication side effects?: No Expresses concern over the cost of medications?: No Outcomes/Goals: Verbalizes medications,desired effect & common side effects @ DC, Pt self-reports following medication regimen, Keeps card in wallet w/medications listed by DC Interventions/plans: Instruct on medication effects & side effects, Review medication list w/patient every two weeks, Instruct importance of taking meds as ordered & assist problem solving - Tobacco Use Tobacco Use: Non-smoker - Hypertension Hypertension Diagnosis:: Hypertension ICD-10 I10 Resting Blood Pressure:: 108/72 [place] [employer] Hypertension Guidelines: [place] [employer] Hypertension Guidelines. Normal BP Less than 120/80. Elevated BP 120/80. Hypertension Stage 1: BP 130-139/80-89. Hypertesnion Stage 2: BP 140 or higher/90 or higher. Hypertension Crisis: BP higher than 180/120 Outcomes/Goals: Able to verbalize/achieve optimal blood pressure <130/80, Incorporates diet changes & exercise for blood pressure control by DC Interventions/plan: Instruct on optimal blood pressure, hypertension & medications, Instruct on effects of sodium, alcohol, stress, exercise &hypertension - Tobacco Cessation Referral Smoking Cessation Referral:: No Individual Education/Counseling:: No Education Schedule Given:: Yes Medical- 30-Day Assessment Medical- 60-Day Assessment Medical- 90-Day Assessment Medical - Final Assessment Psychosocial - Initial Assess - VIsit Date of Eval: 05/30/21 Session #:: 0 - Pre-cardiac rehab evluation Not Applicable: No History of previous Mental disease:: No - Psychosocial Test Tool Used:: [employer] Power QOL Cardiac, PHQ-9 Questionnaire phq-9 Severity: Severity. 1-4 Minimal Depression. 5-9 Mild Depression. 10-14 Moderate Depression. 15-19 Moderately Sever Depression. 20-27 Severe Depression. Rule: - Referral to Behavioral Health PS - Interventions: Yes Attend Stress Management Classes, No Referral to Behavioral Health if PHQ-9 score >9:, No Referral to [facility], No Referral to Physician if PHQ-9 if score is 5-9: - Outcomes/Goals: See list Psychosocial Outcomes/Goals:: ID's personal stressors & 2 strategies to manage stress by discharge - Intervention/Plan: See List Interventions/Plan:: Assess stressors,coping strategies & signs of derpression on admission, Instruct/assist pt to develop coping & personal stress Mgt strategies, Refer to Behavioral Health if appropriate, Refer to Physician if appropriate, Instruct patient to recognize signs & symptoms of depression, Instruct patient to recog Psychosocial - 30-Day Assess Psychosocial - 60-Day Assess Psychosocial - 90-Day Assess Psychosocial - Final Assessmen Patient Health Questionnaire Initial Assessment 1. Little interest or pleasure in doing things: Not at all 2. Feeling down, depressed, or hopeless: Not at all 3. Trouble falling or staying asleep, or sleeping too much: Not at all 4. Feeling tired or having little energy: Several days 5. Poor appetite or overeating: Not at all 6. Feeling bad about yourself -- or that you are a failure or have let yourself or your family down: Not at all 7. Trouble concentrating on things, such as reading the newspaper or watching television: Not at all 8. Moving or speaking so slowly that other people could have noticed. Or the opposite - being so fidgety or restless that you have been moving around a lot more than usual: Not at all 9. Thoughts that you would be better off , or of hurting yourself in some way: Not at all How difficult have these problems made it for you to do your work, take care of things at home, or get along with other people?: Not difficult at all Total Score: 1 SULEMA-Q SV Test - Statements CAD is a disease of the arteries in the heart: False Examples of risk factors for heart disease: True Angina is chest pain or discomfort: True The benefits of resistance training include: False Eating more meat and dairy products: False Anti-platelet medications such as aspirin are important: True The only effective way to manage stress: False An exercise warm-up slowly increases heart rate: I Don't Know Prepared, processed foods usually have high sodium: True Depression is common after a heart attack: I Don't Know The statin medications lower cholesterol: True To control blood pressure, lower the amount of sodium: I Don't Know If someone gets chest discomfort during walking: False Transfats are partially hydrogenated vegetable oils: True Sleep apnea that is not treated increases the risk: False To control cholesterol, one should become a vegetarian: False Someone knows if he/she is exercising at the right level: I Don't Know Diabetes cannot be prevented with exercise & health eating: False Stress is a large risk for heart attack: True A diet that can help lower blood pressure is rich in: True - Total Score Total Correct Responses: 15 Self-Efficacy Initial Assessment We would like to know how confident you are in doing certain activities. Please select your confidence level for:: Select your confidence level for the following using the scale 1-10 where 1 is not at all confident and 10 is totally confident. Your score is the average of all 6 responses. Fatigue: How confident are you that you can keep the fatigue caused by your disease from interfering with the things you want to do? Select Number: 7 Physical Discomfort or Pain: How confident are you that you can keep the physical discomfort or pain of your disease from interfering with the things you want to do? Select Number: 6 Emotional Distress: How confident are you that you can keep the emotional distress caused by your disease from interfering with the things you want to do? Select Number: 7 Other Symptoms or Health Problems: How confident are you that you can keep other symptoms or health problems from interfering with the things you want to do? Select Number: 7 Different Tasks and Activities: How confident are you that you can do the different tasks and activities needed to manage your health condition so as to reduce your need to see a doctor? Select Number: 6 Medication: How confident are you that you can do things other than just taking medication to reduce how much your illness affects your everyday life? Select Number: 8 Total Score:: 6 Nutrition Survey - Nutrition Survey Initial Have you lost >10 lbs over the past 2 months without trying?: No Are you following a special diet at home for diabetes, low fat, or low salt?: No Are you interested in meeting with a dietitian for help understanding your diet?: Yes Do you eat less than 3 meals a day?: No Do you eat fatty meats (brito, sausage, ribs, etc), fried foods, desserts, large amounts of salad dressings, margarine, butter, or cheese most days?: No Do you have food allergies? [Enter types in comment field]: Yes - fresh fruits vegetables tree nuts Do you eat in restaurants more than 3 times a week?: No Do you season food with salt, seasoning salt, or garlic salt?: No Do you used canned, boxed, frozen meals, or soups, seasoning packets?: Yes Total Score:: 3
--- NOTE | 2021-05-30 13:09 | CR.HP_ITS ---
CR - History & Physical - General Arrival date:: 05/30/21 Arrival time:: 13:09 Date of Referral:: 05/12/21 Date of CR Evaluation:: 05/30/21 Referring Physician: Dr. José Miguel Jansen Primary Diagnosis: PCI w/coronary stenting - History of Present Cardiac Event Onset Date: Enter Onset Date of cardiac illnesses in Comment field below Acute Myocardial Infarction within 12 months:: Yes - NSTEMI PTCA or coronary stenting:: Yes - 05/12/2021 Type of Symptoms:: wave of pain that would start in the back and shoulders, then on sunday a large wave and added chest pain so came to the emergency room. - Sleep Disorder Evaluation Hx of Sleep Apnea: No Do you snore loudly (louder than talking or can be heard through closed doors)?: Yes - no snoring since the NSTEMI Do you often feel tired/ fatigued/ sleepy during daytime?: No Has anyone observed you stop breathing during sleep?: No History of Hypertension (for STOP score): Yes STOP Results: Positive - Medications Home Medications: Ambulatory Orders Medication Instructions Recorded aspirin 81 mg PO DAILY 01/16/21 atorvastatin 40 mg PO QHS 01/16/21 metoprolol tartrate 25 mg PO BID 01/16/21 ticagrelor 90 mg PO BID 01/16/21 pantoprazole 40 mg PO DAILY #30 tab 01/17/21 norethin-e.estradiol triphasic 1 each PO DAILY 02/08/21 famotidine 20 mg tablet 20 mg PO DAILY 05/12/21 - Allergies Allergies/Adverse Reactions: Allergies tree nut Adverse Reaction (Intermediate, Verified 05/24/21 15:42) Itching fresh fruit and vegetables Adverse Reaction (Intermediate, Uncoded 05/12/21 15:42) Itching itching in mouth Advanced Directives - Advanced Directives Power of Trial Lawyer: No Living Will: No Advance Directives Information Provided: Yes Advance Directives on File: No DNR Order?:: No - MOLST See MOLST form: No Past Medical History - Covid-19 Screening Fever: No Unexplained muscle aches: No Current respiratory symptoms: No Upper respiratory infections symptoms: No Gastro-intestinal symptoms: No Clf-Adru-Qpzjis symptoms: No Has tested positive for COVID-19 in last 30 days: No Date of testin05/30/21 - speak w/[employer] and is getting the Moderna. Had contact w/person w/symptoms or Covid-19 (+) last 14 days: No Has High Risk Exposures ID'd by Health dept/Inf Control team: No 65 years or older:: No Lives in Assisted Living facility:: No Has a chronic lung disease or moderate to severe asthma:: No Has a serious heart condition:: No Immunocompromised:: No Severely obese (Body Mass Index of 40 or higher):: No Diabetic:: No Has chronic kidney disease undergoing dialysis:: No - Past Medical Illness Medical History: Past Medical History (Last Reviewed 05/24/21 @ 15:43 by Luz Marina Jessica) Arthritis M19.90 Atherosclerotic heart disease of [place] coronary artery without angina pectoris I25.10 Dyspnea on exertion R06.00 Essential hypertension I10 GERD (gastroesophageal reflux disease) K21.9 Hay fever J30.1 History of non-ST elevation myocardial infarction (NSTEMI) I25.2 Hyperlipemia E78.5 Hypertension I10 Presence of stent in coronary artery Onset Date: ~01/11/21 Z95.5 PCI/REJI to LAD 01/11/21 @ Pulmonary emboli I26.99 Seasonal allergies J30.2 - Past Surgical History Surgical History: Past Surgical History (Last Reviewed 05/24/21 @ 15:43 by Luz Marina Jessica) H/O dilation and curettage Z98.890 History of heart artery stent Z95.[address] [facility] BEGUM [facility] Presence of coronary angioplasty implant and graft Onset Date: ~01/11/21 Z95.5 PCI/REJI to LAD 01/11/21 @ Surgical History: - - PCI x1, D&C, tonsillectomy. - Family History Summary Family History: Family History (Last Reviewed 05/24/21 @ 15:43 by Luz Marina Jessica) Mother Alzheimer disease Mother Diabetes Mother Heart disease Mother Skin cancer Father Cancer Social History - Smoking History Smoking Status: Former smoker Years Smokin - Alcohol Use Alcohol Usage: No - Substance Abuse Hx Substance Use: No - Occupation Occupation (List type of work in comments):: Employed - Hobbies, Recreation, Social Activities Hobbies: Sports - riding motorcycles, Exercise - hiking walking trails, Other - beach Recreational Activities: I am able to engage in all my recreational activities Social Environment - Status Marital Status: - Current Living Arrangements Living Environment:: Spouse - Children How many children do you have?: 2 Do any of your children live nearby?: Yes - 24 is out of the home on his own - Safety Do you feel safe in your surroundings?: Yes - Assistance Do you need any assistance at home?: no Review of Systems - Review of Systems Hints: Right click = Denies (Slash). Left click = Reports ([place]) Review of Present Symptoms: Reports: Shortness of Breath with Exertion - stairs still are an issue with shortness of breath., Angina - after exercise experiencing mild chest pain particularly after swimming. Maybe related to muscular?, Dizziness/Lightheadedness - rare occasions mostly related to allergy, Fatigue - fatigues easily., Appetite - Normal, Appetite - Special Diet - nothing special., Sleep - Normal. Denies: Shortness of Breath at Rest, Heart Arrhythmia/Irregularities, Sexual Changes - Pain Is Patient Pain Free?: Yes Pain Location: none Pain Level: 0/10 Risk Factor Assessment - Vital Signs Temperature: 97.5 F Respiratory Rate: 16 Pulse Ox: 95 Blood Pressure: 108/72 - Pulse Pulse Rate: 84 Pulse Rhythm: Regular - Hypertension Blood Pressure Sitting - Left Arm: 108/72 - Obesity Height: 5 ft 2.5 in Weight:: 210 lb Weight in Pounds: 210.0 lbs Weight Source: Stated by Patient Body Mass Index (BMI): 37.8 Nutritional Referral for Obesity: Yes - Risk Stratification Risk Guidelines: Lowest Risk: Risk Factor for Smoking, Risk Factor for Dyslipid emia, Risk Factor for Diabetes, Risk Factor for Hypertension, Risk Factor for Sedentary Lifestyle, Risk Factor for Depression, Highest Risk: Risk Factor for Obesity - Family History Family History: Family History (Last Reviewed 05/24/21 @ 15:43 by Luz Marina Jessica) Mother Alzheimer disease Mother Diabetes Mother Heart disease Mother Skin cancer Father Cancer Motivation - Motivation to Participate On a scale of 1 to 10, how prepared are you to commit to attending program?: 9 What do you see as barriers to successfully being able to complete the program?: none What do you see as the benefits of succesfully completing the program? In other words, what do you hope to get out of participating in the program?: more exercise, healthier, better living style Are there issues you are dealing with that will interfere with completing the program?: none Do you have a spouse or signficant other, family or friends who will help support you to complete the program?: Yes
[2021-05-30 13:26] VITALS: BP 108/72; PULSE 84; RESP 16; TEMP 36.4; O2SAT 95; BMI 37.8
[2021-05-30 14:03] VITALS: BP 108/72; BMI 38.4
== END ==
PROVIDERS: PCP Family Medicine; Referring Provider Internal Medicine Cardiovascular Disease; Visit Provider Internal Medicine Cardiovascular Disease
DX: Z95.5 Presence of coronary angioplasty implant and graft (principal); I10 Essential (primary) hypertension; E78.5 Hyperlipidemia, unspecified; K21.9 Gastro-esophageal reflux disease without esophagitis

== ENCOUNTER 2021-06-01 08:03 | Outpatient (RCR) | payer BC, SELFPAY ==
[2021-05-30 13:26] VITALS: BMI 37.8
[2021-05-30 14:03] VITALS: BMI 38.4
== END 2021-06-04 23:59 ==
LOC: CR 08:03
PROVIDERS: PCP Family Medicine; Referring Provider Internal Medicine Cardiovascular Disease; Visit Provider Internal Medicine Cardiovascular Disease
DX: Z95.5 Presence of coronary angioplasty implant and graft (principal); I25.10 Atherosclerotic heart disease of native coronary artery without angina pectoris; I26.99 Other pulmonary embolism without acute cor pulmonale; I10 Essential (primary) hypertension; E78.5 Hyperlipidemia, unspecified; R06.00 Dyspnea, unspecified
CPT/HCPCS: 93798

== ENCOUNTER → 2021-06-08 06:42 | Outpatient (CLI) | payer BC, SELFPAY ==
[2021-05-12 15:37] VITALS: BMI 38.5
[2021-05-30 13:26] VITALS: BMI 37.8
[2021-05-30 14:03] VITALS: BMI 38.4
--- NOTE | 2021-06-08 06:42 | ECHOD_ITS ---
Reason For Study: DYSPNEA ON EXERTION Procedure This was a 2D Doppler, Color Flow transthoracic echocardiogram. The study was technically difficult. Exam performed in department. Left Ventricle Normal LV size. Left ventricular systolic function is normal. The estimated ejection fraction is 60 %. Diastolic function is indeterminate. No regional wall motion abnormalities noted. Right Ventricle Normal RV size. Normal systolic function. Atria The left atrium is mildly enlarged. Normal right atrium. No doppler evidence for ASD. Mitral Valve There is no mitral annular calcification. Normal mitral valve. Trivial mitral valve insufficiency. Tricuspid Valve Normal tricuspid valve. Trivial tricuspid valve insufficiency. Unable to estimate RV systolic pressure/pulmonary artery pressure due to technically difficult study. Aortic Valve Trisinus/trileaflet aortic valve. Normal aortic valve. Pulmonic Valve The pulmonic valve is not well visualized. Great Vessels Normal sized aortic root. Pericardium/Pleural No pericardial effusion. MMode/2D Measurements & Calculations LVIDd: 3.9 cm IVSd: 0.97 cm Ao root diam: 3.2 cm LVIDs: 2.6 cm LVPWd: 0.97 cm RVDd: 2.8 cm FS: 32.8 % LAV(MOD-bp): 32.3 ml LA A4 area: 13.1 cm2 LA dimension(2D): 3.1 cm LAV(MOD-bp) Indexed: 16.4 ml/m2 LAV(MOD-sp2): 31.4 ml LAV(MOD-sp4): 31.7 ml RA A4 area: 9.4 cm2 Time Measurements MV dec time: 0.22 sec Doppler Measurements & Calculations MV E max etienne: 43.5 cm/sec Lat Peak E' Etienne: 9.6 cm/sec Med Peak E' Etienne: 7.2 cm/sec MV A max etienne: 50.0 cm/sec E/E' lat: 4.6 E/E' med: 6.1 MV E/A: 0.87 Ao V2 max: 105.6 cm/sec LV V1 max: 90.7 cm/sec PA V2 max: 72.2 cm/sec Ao max P.5 mmHg LV V1 max P.3 mmHg ECHO/Echo Complete Interpretation Summary The study was technically difficult. Left ventricular systolic function is normal. The estimated ejection fraction is 60 %. The left atrium is mildly enlarged. Trivial mitral valve insufficiency. Trivial tricuspid valve insufficiency. Unable to estimate RV systolic pressure/pulmonary artery pressure due to techni adelaida difficult study. Diastolic function is indeterminate. Ordering Physician: José Miguel Jansen Referring Physician: Lon Flores Performed By: Zoë Massey, JESSICA, RVT
--- NOTE | 2021-06-08 09:58 | STRESSREP ---
Stress Test Report Date: 06-08-2021 Procedure: Exercise tolerance test/imaging study Indications: Shortness of breath/dyspnea on exertion; CAD; status post PCI; pulmonary emboli Consent: Per the patient Procedure: The patient exercised on a Duran protocol for 5 minutes and 30 completing Stage I and 1 minute and 30 seconds of Stage II achieving a peak heart rate of 106 bpm (93% predicted maximal heart rate) with a peak blood pressure 144/72 mmHg and a peak MET capacity of 7 METs. The baseline ECG demonstrated normal sinus rhythm. The peak exercise ECG demonstrated no obvious ECG changes. There were no cardiac dysrhythmias pretest, during exercise, or recovery. The functional capacity was considered average. There was no complaint of chest discomfort during exercise or recovery. The examination was discontinued secondary to dyspnea. Impression: 1. Technically adequate (percent predicted maximal heart rate greater than 85%) exercise tolerance test 2. Peak exercise ECG with no obvious ECG changes 3. There were no cardiac dysrhythmias pretest, during exercise, or recovery 4. Nuclear images pending Myocardial perfusion imaging study: Technique: The patient was injected with 14.6 mCi of technetium 99m Cardiolite and subsequently rest SPECT Cardiolite nuclear imaging was obtained in the horizontal long, vertical long, and short axis views. The patient exercised on a Duran protocol for 5 minutes and 30 completing Stage I and 1 minute and 30 seconds of Stage II achieving a peak heart rate of 106 bpm (93% predicted maximal heart rate) with a peak blood pressure 144/72 mmHg and a peak MET capacity of 7 METs. The patient was injected with 45.0 mCi of technetium 99m Cardiolite and subsequently stress SPECT Cardiolite nuclear imaging was obtained in the horizontal long, vertical long, and short axis views. A gated Cardiolite study at peak stress was obtained. Interpretation: Rest and stress SPECT Cardiolite nuclear imaging status post realignment, normalization, and attenuation correction, demonstrates the appearance of relative uniform tracer uptake and myocardial perfusion appearing within normal limits. There is end systolic thickening and brightening. The gated Cardiolite study demonstrates myocardial thickening and inward wall motion. The reported LVEF is 66%. Impression: 1. Rest and stress SPECT Cardiolite nuclear imaging demonstrate relative uniform tracer uptake and myocardial perfusion appearing within normal limits. 2. The gated Cardiolite study reports an LVEF of 66%. This note was generated with [employer] software. It may contain incorrect words, spelling, and punctuation that were not noted in checking the note before signing.
== END ==
PROVIDERS: PCP Family Medicine; Referring Provider Internal Medicine Cardiovascular Disease; Visit Provider Internal Medicine Cardiovascular Disease
DX: R06.00 Dyspnea, unspecified (principal); I26.99 Other pulmonary embolism without acute cor pulmonale; I25.10 Atherosclerotic heart disease of native coronary artery without angina pectoris; I10 Essential (primary) hypertension; E78.5 Hyperlipidemia, unspecified; Z95.5 Presence of coronary angioplasty implant and graft
CPT/HCPCS: 78452; 93017; 93306; A9500; A4216

== ENCOUNTER 2021-07-04 08:00 | Outpatient (RCR) | payer BC, SELFPAY ==
[2021-05-30 13:26] VITALS: BMI 37.8
[2021-05-30 14:03] VITALS: BMI 38.4
--- NOTE | 2021-06-29 07:00 | PCM.CR.ITP ---
Diagnosis Exercise - 30-day Assessment - Visit Date of Eval: 06/29/21 Session #:: 7 - Patient started CR on 06/01/21 Comments:: Patient missed 3 scheduled sessions due to a preplanned vacation prior to her cardiac event. - Physician Prescribed Exercise Modalities: Treadmill, Rower, Airdyne Frequency: 3x/week for 12 weeks [36 sessions] Intensity: 60-80% of age predicted maximum heart rate reserve Current METSs:: 5.5 increased from 3.5 Target Heart Rate:: 111-146 Current RPE:: 12-13 Maximum Excercise HR:: 148 Resting Blood Pressure: 120/64 Maximum Exercise Blood Pressure: 140/70 EKG Type: NSR to sinus tach without ectopy. Current Physical Activity or Exercising minutes: 30-45 - Outcomes & Goals Goals:: Verbalizes understanding of THR, RPE & goal METS by session 6, Documents in home exercise log/reports 30 min aerobic 5 day/wk by DC, Demonstrates accurate pulse taking by DC - Intervention & Plan Exercise Program Goals: Instruct on personal THR & RPE, Instruct on MET level & personal MET goal, Show patient to take own pulse /validate performance until accurate, Instruct on home exercise - 30-day Reassessments 30 day Reassessments:: Progressing - Physical Activity Home Exercise Physical Activity - Home Exercise: Safe Exercise, Warm-up, Self-monitoring, Cool-Down, Home Exercise > 30 min Daily, Sitting Time <3 hours/daily - Outcomes & Goals Outcomes/Goals: Demonstrates correct Warm-up/exercise Cool-Down (S3) if = 2.5 METs, Verbalizes symptoms of exercise intolerance by Session 3 (S3), Demonstrate safe equipment use (S3) & follows exercise prescrition (6) - Intervention & Plan Plan/Intervention: Instruct warm-up & cool-down if exercising at > 2 METs, Instruct on symptoms of exercise intolerance & actions to take, Instruct & monitor on saf, Assess intial functional capacity & safety risk - 30-day Reassessments 30 day Reassessments:: Met Nutrition - Initial Assessment Nutrition - 30-Day Assessment - Program Goals Nutrition Program Goals: LDL <100 optimal. 100 - 129 Near optimal. 130 - 159 Borderline High. 160 - 189 High. Total Cholesterol <200 desirable. 200 - 239 Borderline High. >/= 240 High. HDL < 40 Low >/=60 High. Triglycerides <150 desirable. <199 optimal. VlDL 5 - 40. HgbA1C <7%. BMI <25 Patient has diagnosis of Hyperlipidemia (ICD E78)?: Yes - Visit Date of Assessment:: 06/29/21 Session #:: 7 - no labs available - Cholesterol/Lipids Determine presence & major risk factors that modify LDL goal: Hypertension or hypertensive medication Outcomes/Goals: Pt IDs own risk factors & lifestyle modifications by Session 10, Verbalizes symptoms of angina & response by session 3., Pt independently manages Intervention/Plan: Instruct on personal lipid levels & lipid goals/NCEP guidelines, Instruct on cholesterol Referral to dietitian:: Yes - Medical Nutrition Therapy 30-day Reassessments:: Progressing - Diabetes (Other Core Measures) Diabetes Type: Not Applicable - Weight Mgt (Other Care) Not Applicable: No Height: 5 ft 2 in Weight:: 208 lb 8 oz BMI: 38.1 Diagnosis Overweight/Obesity BMI> 30% ICD-10 E66: Yes Diagnosis High BMI/Morbid Obesity BMI> 35% ICD-10 Z68: Yes Outcomes/Goals: Pt sets, maintains & shows weight loss goal & trend during rehab Intervention/Plan: Instruct on ideal BMI & set weight loss goal w/patient, Assist pt to ID & incorporate diet changes for weight loss by S9, Refer to Structured Weight Loss program as appropriate, Encourage goal of using 250-300dcal per session for weight loss 30 day Reassessments:: Progressing Reassessment Notes & Comments:: Patient actually gaining weight since starting CR. ENCOURAGED WEIGHT LOSS PROGRAM. - Healthy Eating Habits Will attend diet classes:: Yes Outcomes/Goals:: Consume diet rich in vegs,fruits,whole grain/high fiber,fish,lean meat, Limit sat/trans fats,cholesterol & added salts & sugars Intervention/Plan:: Assess current eating habits 30-day Reassessments:: Progressing - Education Gave educational materials for:: Healthy eating Nutrition - 60-Day Assessment Nutrition - 90-Day Assessment Nutrition - Final Assessment Medical - Initial Assessment Medical- 30-Day Assessment - Visit Date of Eval: 06/29/21 Session #:: 7 - Medication Compliance Preventative Medication(s):: Aspirin, Ticagrelor/P2Y12 inhibitor, Statin/lipid, Beta flavio H/O mental health issues: depression, anxiety, or addiction?: No Doesn?t believe in the benefits of treatment?: No Believes medications are unnecessary or harmful?: No Has a concern about medication side effects?: No Expresses concern over the cost of medications?: No Outcomes/Goals: Verbalizes medications,desired effect & common side effects @ DC, Pt self-reports following medication regimen, Keeps card in wallet w/medications listed by DC Interventions/plans: Instruct on medication effects & side effects, Review medication list w/patient every two weeks, Instruct importance of taking meds as ordered & assist problem solving 30-day Reassessments:: Met - Tobacco Use Tobacco Use: Non-smoker - Hypertension Hypertension Diagnosis:: Hypertension ICD-10 I10 Resting Blood Pressure:: 120/64 [place] [employer] Hypertension Guidelines: [place] [employer] Hypertension Guidelines. Normal BP Less than 120/80. Elevated BP 120/80. Hypertension Stage 1: BP 130-139/80-89. Hypertesnion Stage 2: BP 140 or higher/90 or higher. Hypertension Crisis: BP higher than 180/120 Peak Exercise Blood Pressure:: 140/70 - while on the [employer] Airdyne Outcomes/Goals: Able to verbalize/achieve optimal blood pressure <130/80, Incorporates diet changes & exercise for blood pressure control by DC Interventions/plan: Instruct on optimal blood pressure, hypertension & medications, Instruct on effects of sodium, alcohol, stress, exercise &hypertension 30 day Reassessments:: Progressing - Tobacco Cessation Referral Smoking Cessation Referral:: No Individual Education/Counseling:: No Education Schedule Given:: Yes - Online [employer] and Educational workbook provided Medical- 60-Day Assessment Medical- 90-Day Assessment Medical - Final Assessment Psychosocial - Initial Assess Psychosocial - 30-Day Assess - VIsit Date of Eval: 06/29/21 Session #:: 7 Not Applicable: Yes History of previous Mental disease:: No - Psychosocial Test Tool Used:: PHQ-9 Questionnaire phq-9 Severity: Severity. 1-4 Minimal Depression. 5-9 Mild Depression. 10-14 Moderate Depression. 15-19 Moderately Sever Depression. 20-27 Severe Depression. Rule: - Referral to Behavioral Health PS - Interventions: Yes Attend Stress Management Classes, No Referral to Behavioral Health if PHQ-9 score >9:, No Referral to [facility], No Referral to Physician if PHQ-9 if score is 5-9: - Outcomes/Goals: See list Psychosocial Outcomes/Goals:: ID's personal stressors & 2 strategies to manage stress by discharge - Intervention/Plan: See List Interventions/Plan:: Assess stressors,coping strategies & signs of derpression on admission, Instruct/assist pt to develop coping & personal stress Mgt strategies, Instruct patient to recognize signs & symptoms of depression, Instruct patient to recog - 30-day Reassessments: 30 day Reassessments:: Progressing Psychosocial - 60-Day Assess Psychosocial - 90-Day Assess Psychosocial - Final Assessmen Patient Health Questionnaire 30-Day Re-eval Assessment 1. Little interest or pleasure in doing things: Not at all 2. Feeling down, depressed, or hopeless: Not at all 3. Trouble falling or staying asleep, or sleeping too much: Not at all 4. Feeling tired or having little energy: Not at all 5. Poor appetite or overeating: Not at all 6. Feeling bad about yourself -- or that you are a failure or have let yourself or your family down: Not at all 7. Trouble concentrating on things, such as reading the newspaper or watching television: Not at all 8. Moving or speaking so slowly that other people could have noticed. Or the opposite - being so fidgety or restless that you have been moving around a lot more than usual: Not at all 9. Thoughts that you would be better off , or of hurting yourself in some way: Not at all Total Score: 0 Self-Efficacy 30-Day Re-eval Assessment We would like to know how confident you are in doing certain activities. Please select your confidence level for:: Select your confidence level for the following using the scale 1-10 where 1 is not at all confident and 10 is totally confident. Your score is the average of all 6 responses. Fatigue: How confident are you that you can keep the fatigue caused by your disease from interfering with the things you want to do? Select Number: 8 Physical Discomfort or Pain: How confident are you that you can keep the physical discomfort or pain of your disease from interfering with the things you want to do? Select Number: 7 Emotional Distress: How confident are you that you can keep the emotional distress caused by your disease from interfering with the things you want to do? Select Number: 8 Other Symptoms or Health Problems: How confident are you that you can keep other symptoms or health problems from interfering with the things you want to do? Select Number: 8 Different Tasks and Activities: How confident are you that you can do the different tasks and activities needed to manage your health condition so as to reduce your need to see a doctor? Select Number: 7 Medication: How confident are you that you can do things other than just taking medication to reduce how much your illness affects your everyday life? Select Number: 9 Total Score:: 7 Nutrition Survey
[2021-06-29 07:09] VITALS: BP 120/64; BP 140/70; BMI 38.1
== END 2021-07-05 23:59 ==
LOC: CR 08:00
PROVIDERS: PCP Family Medicine; Referring Provider Internal Medicine Cardiovascular Disease; Visit Provider Internal Medicine Cardiovascular Disease
DX: I25.10 Atherosclerotic heart disease of native coronary artery without angina pectoris (principal); Z95.5 Presence of coronary angioplasty implant and graft; I26.99 Other pulmonary embolism without acute cor pulmonale; I10 Essential (primary) hypertension; E78.5 Hyperlipidemia, unspecified; R06.00 Dyspnea, unspecified
CPT/HCPCS: 93798

== ENCOUNTER 2021-07-20 09:00 | Outpatient (RCR) | payer BC, SELFPAY ==
[2021-05-30 13:26] VITALS: BMI 37.8
[2021-05-30 14:03] VITALS: BMI 38.4
[2021-06-29 07:09] VITALS: BMI 38.1
== END 2021-08-04 23:59 ==
LOC: NS 09:00
PROVIDERS: PCP Family Medicine; Visit Provider Internal Medicine Cardiovascular Disease
DX: Z71.3 Dietary counseling and surveillance (principal); E66.9 Obesity, unspecified; K21.9 Gastro-esophageal reflux disease without esophagitis; I10 Essential (primary) hypertension; E78.5 Hyperlipidemia, unspecified; Z68.38 Body mass index [BMI] 38.0-38.9, adult
CPT/HCPCS: 97802

== ENCOUNTER 2021-08-03 08:00 | Outpatient (RCR) | payer BC, SELFPAY ==
[2021-06-29 07:09] VITALS: BMI 38.1
[2021-07-06 00:41] VITALS: BP 120/64; BP 140/70; BMI 37.8
--- NOTE | 2021-07-29 13:28 | PCM.CR.ITP ---
Diagnosis Exercise - 60-day Assessment - Visit Date of Eval: 07/29/21 Session #:: 15 - Only attending [facility] due to work - Physician Prescribed Exercise Modalities: Treadmill, Rower, NuStep Frequency: 2x/week for 18 weeks [36 sessions] Intensity: 60-80% of age predicted maximum heart rate reserve Current METSs:: 7.0 Target Heart Rate:: 111-146 Current RPE:: 13-14 Maximum Excercise HR:: 129 Resting Blood Pressure: 106/74 Maximum Exercise Blood Pressure: 144/78 EKG Type: NSR to sinus tachycardia without ectopy. - Outcomes & Goals Goals:: Verbalizes understanding of THR, RPE & goal METS by session 6, Documents in home exercise log/reports 30 min aerobic 5 day/wk by DC, Demonstrates accurate pulse taking by DC - Intervention & Plan Exercise Program Goals: Instruct on personal THR & RPE, Instruct on MET level & personal MET goal, Show patient to take own pulse /validate performance until accurate, Instruct on home exercise - 30-day Reassessments 30 day Reassessments:: Progressing - Physical Activity Home Exercise Physical Activity - Home Exercise: Safe Exercise, Warm-up, Self-monitoring, Cool-Down, Home Exercise > 30 min Daily, Sitting Time <3 hours/daily - Outcomes & Goals Outcomes/Goals: Demonstrates correct Warm-up/exercise Cool-Down (S3) if = 2.5 METs, Verbalizes symptoms of exercise intolerance by Session 3 (S3), Demonstrate safe equipment use (S3) & follows exercise prescrition (6) - Intervention & Plan Plan/Intervention: Instruct warm-up & cool-down if exercising at > 2 METs, Instruct on symptoms of exercise intolerance & actions to take, Instruct & monitor on saf, Assess intial functional capacity & safety risk - 30-day Reassessments 30 day Reassessments:: Progressing Nutrition - Initial Assessment Nutrition - 30-Day Assessment Nutrition - 60-Day Assessment - Program Goals Nutrition Program Goals: LDL <100 optimal. 100 - 129 Near optimal. 130 - 159 Borderline High. 160 - 189 High. Total Cholesterol <200 desirable. 200 - 239 Borderline High. >/= 240 High. HDL < 40 Low >/=60 High. Triglycerides <150 desirable. <199 optimal. VlDL 5 - 40. HgbA1C <7%. BMI <25 Patient has diagnosis of Hyperlipidemia (ICD E78)?: Yes - Visit Date of Assessment:: 07/29/21 Session #:: 15 - Cholesterol/Lipids Determine presence & major risk factors that modify LDL goal: Hypertension or hypertensive medication, Age men > 45 years; women >/= 55 years Outcomes/Goals: Pt IDs own risk factors & lifestyle modifications by Session 10, Verbalizes symptoms of angina & response by session 3., Pt independently manages Intervention/Plan: Instruct on personal lipid levels & lipid goals/NCEP guidelines, Instruct on cholesterol Referral to dietitian:: No - Scheduled appointment 07/20/2021 30-day Reassessments:: Progressing - Diabetes (Other Core Measures) Diabetes Type: Not Applicable - Weight Mgt (Other Care) Not Applicable: No Height: 5 ft 2 in Weight:: 214 lb BMI: 39.1 Diagnosis Overweight/Obesity BMI> 30% ICD-10 E66: Yes Diagnosis High BMI/Morbid Obesity BMI> 35% ICD-10 Z68: Yes Outcomes/Goals: Pt sets, maintains & shows weight loss goal & trend during rehab Intervention/Plan: Instruct on ideal BMI & set weight loss goal w/patient, Assist pt to ID & incorporate diet changes for weight loss by S9, Encourage goal of using 250-300dcal per session for weight loss 30 day Reassessments:: Progressing - Healthy Eating Habits Will attend diet classes:: Yes Outcomes/Goals:: Consume diet rich in vegs,fruits,whole grain/high fiber,fish,lean meat, Limit sat/trans fats,cholesterol & added salts & sugars Intervention/Plan:: Assess current eating habits 30-day Reassessments:: Not Met - has not made any changes in weight - Education Gave educational materials for:: Healthy eating Nutrition - 90-Day Assessment Nutrition - Final Assessment Medical - Initial Assessment Medical- 30-Day Assessment Medical- 60-Day Assessment - Visit Date of Eval: 07/29/21 Session #:: 15 - Medication Compliance Preventative Medication(s):: Aspirin, Ticagrelor/P2Y12 inhibitor, Statin/lipid, Beta flavio H/O mental health issues: depression, anxiety, or addiction?: No Doesn?t believe in the benefits of treatment?: No Believes medications are unnecessary or harmful?: No Has a concern about medication side effects?: No Expresses concern over the cost of medications?: No Outcomes/Goals: Verbalizes medications,desired effect & common side effects @ DC, Pt self-reports following medication regimen, Keeps card in wallet w/medications listed by DC Interventions/plans: Instruct on medication effects & side effects, Review medication list w/patient every two weeks, Instruct importance of taking meds as ordered & assist problem solving 30-day Reassessments:: Progressing - Tobacco Use Tobacco Use: Non-smoker - Hypertension Hypertension Diagnosis:: Hypertension ICD-10 I10 Resting Blood Pressure:: 106/74 [place] [employer] Hypertension Guidelines: [place] [employer] Hypertension Guidelines. Normal BP Less than 120/80. Elevated BP 120/80. Hypertension Stage 1: BP 130-139/80-89. Hypertesnion Stage 2: BP 140 or higher/90 or higher. Hypertension Crisis: BP higher than 180/120 Peak Exercise Blood Pressure:: 144/78 Outcomes/Goals: Able to verbalize/achieve optimal blood pressure <130/80, Incorporates diet changes & exercise for blood pressure control by DC Interventions/plan: Instruct on optimal blood pressure, hypertension & medications, Instruct on effects of sodium, alcohol, stress, exercise &hypertension 30 day Reassessments:: Progressing - Tobacco Cessation Referral Smoking Cessation Referral:: No Individual Education/Counseling:: No Education Schedule Given:: Yes Medical- 90-Day Assessment Medical - Final Assessment Psychosocial - Initial Assess Psychosocial - 30-Day Assess Psychosocial - 60-Day Assess - VIsit Date of Eval: 07/29/21 Session #:: 15 Not Applicable: Yes History of previous Mental disease:: No - Psychosocial Test Tool Used:: PHQ-9 Questionnaire phq-9 Severity: Severity. 1-4 Minimal Depression. 5-9 Mild Depression. 10-14 Moderate Depression. 15-19 Moderately Sever Depression. 20-27 Severe Depression. Rule: - Referral to Behavioral Health PS - Interventions: Yes Attend Stress Management Classes, No Referral to Behavioral Health if PHQ-9 score >9:, No Referral to [facility], No Referral to Physician if PHQ-9 if score is 5-9: - Outcomes/Goals: See list Psychosocial Outcomes/Goals:: ID's personal stressors & 2 strategies to manage stress by discharge - Intervention/Plan: See List Interventions/Plan:: Assess stressors,coping strategies & signs of derpression on admission, Instruct/assist pt to develop coping & personal stress Mgt strategies, Instruct patient to recognize signs & symptoms of depression, Instruct patient to recog - 30-day Reassessments: 30 day Reassessments:: Progressing Psychosocial - 90-Day Assess Psychosocial - Final Assessmen Patient Health Questionnaire 60-Day Re-eval Assessment 1. Little interest or pleasure in doing things: Not at all 2. Feeling down, depressed, or hopeless: Not at all 3. Trouble falling or staying asleep, or sleeping too much: Not at all 4. Feeling tired or having little energy: Not at all 5. Poor appetite or overeating: Not at all 6. Feeling bad about yourself -- or that you are a failure or have let yourself or your family down: Not at all 7. Trouble concentrating on things, such as reading the newspaper or watching television: Not at all 8. Moving or speaking so slowly that other people could have noticed. Or the opposite - being so fidgety or restless that you have been moving around a lot more than usual: Not at all 9. Thoughts that you would be better off , or of hurting yourself in some way: Not at all How difficult have these problems made it for you to do your work, take care of things at home, or get along with other people?: Not difficult at all Total Score: 0 Self-Efficacy 60-Day Re-eval Assessment We would like to know how confident you are in doing certain activities. Please select your confidence level for:: Select your confidence level for the following using the scale 1-10 where 1 is not at all confident and 10 is totally confident. Your score is the average of all 6 responses. Fatigue: How confident are you that you can keep the fatigue caused by your disease from interfering with the things you want to do? Select Number: 10 Physical Discomfort or Pain: How confident are you that you can keep the physical discomfort or pain of your disease from interfering with the things you want to do? Select Number: 10 Emotional Distress: How confident are you that you can keep the emotional distress caused by your disease from interfering with the things you want to do? Select Number: 10 Other Symptoms or Health Problems: How confident are you that you can keep other symptoms or health problems from interfering with the things you want to do? Select Number: 10 Different Tasks and Activities: How confident are you that you can do the different tasks and activities needed to manage your health condition so as to reduce your need to see a doctor? Select Number: 10 Medication: How confident are you that you can do things other than just taking medication to reduce how much your illness affects your everyday life? Select Number: 10 Total Score:: 10 Nutrition Survey
[2021-07-29 13:40] VITALS: BP 106/74; BP 144/78; BMI 39.1
== END 2021-08-04 23:59 ==
LOC: CR 08:00
PROVIDERS: PCP Family Medicine; Referring Provider Internal Medicine Cardiovascular Disease; Visit Provider Internal Medicine Cardiovascular Disease
DX: I25.10 Atherosclerotic heart disease of native coronary artery without angina pectoris (principal); I26.99 Other pulmonary embolism without acute cor pulmonale; I10 Essential (primary) hypertension; E78.5 Hyperlipidemia, unspecified; Z95.5 Presence of coronary angioplasty implant and graft
CPT/HCPCS: 93798

== ENCOUNTER 2021-08-22 09:00 | Outpatient (RCR) | payer BC, SELFPAY ==
[2021-07-29 13:40] VITALS: BMI 39.1
[2021-08-05 00:07] VITALS: BMI 37.8
== END 2021-09-04 23:59 ==
LOC: NS 09:00
PROVIDERS: PCP Family Medicine; Visit Provider Internal Medicine Cardiovascular Disease
DX: Z71.3 Dietary counseling and surveillance (principal); E66.9 Obesity, unspecified; Z68.38 Body mass index [BMI] 38.0-38.9, adult; K21.9 Gastro-esophageal reflux disease without esophagitis; I10 Essential (primary) hypertension; E78.5 Hyperlipidemia, unspecified
CPT/HCPCS: 97803

== ENCOUNTER 2021-08-31 08:00 | Outpatient (RCR) | payer BC, SELFPAY ==
[2021-07-29 13:40] VITALS: BMI 39.1
[2021-08-05 00:32] VITALS: BP 106/74; BP 144/78; BMI 37.8
--- NOTE | 2021-08-26 08:49 | CR.ITP_ITS ---
Diagnosis Exercise - 60-day Assessment - Visit Date of Eval: 08/26/21 Session #:: 23 - Physician Prescribed Exercise Modalities: Treadmill, Biodyne - Device replaced with SciFit Lateral technology trainer., NuStep Frequency: 3x/week for 12 weeks [36 sessions] Intensity: 60-80% of age predicted maximum heart rate reserve Current METSs:: 7.5 increased from 6.5 Target Heart Rate:: 111-146 Current RPE:: 12-14 Maximum Excercise HR:: 129 Maximum Exercise Blood Pressure: 130/75 EKG Type: NST to sinus tach with an isolated PAC. Current Physical Activity or Exercising minutes: 38 - Outcomes & Goals Goals:: Verbalizes understanding of THR, RPE & goal METS by session 6, Documents in home exercise log/reports 30 min aerobic 5 day/wk by DC, Demonstrates accurate pulse taking by DC - Intervention & Plan Exercise Program Goals: Instruct on personal THR & RPE, Instruct on MET level & personal MET goal, Show patient to take own pulse /validate performance until accurate, Instruct on home exercise - 30-day Reassessments 30 day Reassessments:: Progressing - Physical Activity Home Exercise Physical Activity - Home Exercise: Safe Exercise, Warm-up, Self-monitoring, Cool-Down, Home Exercise > 30 min Daily, Sitting Time <3 hours/daily - Outcomes & Goals Outcomes/Goals: Demonstrates correct Warm-up/exercise Cool-Down (S3) if = 2.5 METs, Verbalizes symptoms of exercise intolerance by Session 3 (S3), Demonstrate safe equipment use (S3) & follows exercise prescrition (6) - Intervention & Plan Plan/Intervention: Instruct warm-up & cool-down if exercising at > 2 METs, Instruct on symptoms of exercise intolerance & actions to take, Instruct & monitor on saf, Assess intial functional capacity & safety risk - 30-day Reassessments 30 day Reassessments:: Progressing Nutrition - Initial Assessment Nutrition - 30-Day Assessment Nutrition - 60-Day Assessment - Program Goals Nutrition Program Goals: LDL <100 optimal. 100 - 129 Near optimal. 130 - 159 Borderline High. 160 - 189 High. Total Cholesterol <200 desirable. 200 - 239 Borderline High. >/= 240 High. HDL < 40 Low >/=60 High. Triglycerides <150 desirable. <199 optimal. VlDL 5 - 40. HgbA1C <7%. BMI <25 Patient has diagnosis of Hyperlipidemia (ICD E78)?: Yes - Visit Date of Assessment:: 08/26/21 Session #:: 23 - Cholesterol/Lipids Determine presence & major risk factors that modify LDL goal: Hypertension or hypertensive medication, Family history of premature CHD in Male < 55 years: female <65 yearsFa Outcomes/Goals: Pt IDs own risk factors & lifestyle modifications by Session 10, Verbalizes symptoms of angina & response by session 3., Pt independently manages Intervention/Plan: Instruct on personal lipid levels & lipid goals/NCEP guidelines, Instruct on cholesterol Referral to dietitian:: No - Patient met with Nutritional Services on 07/20/2021 30-day Reassessments:: Met - Diabetes (Other Core Measures) Diabetes Type: Not Applicable - Weight Mgt (Other Care) Not Applicable: No - 62 Height: 5 ft 2 in Weight:: 216 lb BMI: 39.4 Diagnosis Overweight/Obesity BMI> 30% ICD-10 E66: Yes Diagnosis High BMI/Morbid Obesity BMI> 35% ICD-10 Z68: Yes Outcomes/Goals: Pt sets, maintains & shows weight loss goal & trend during rehab Intervention/Plan: Instruct on ideal BMI & set weight loss goal w/patient, Assist pt to ID & incorporate diet changes for weight loss by S9, Encourage goal of using 250-300dcal per session for weight loss 30 day Reassessments:: Progressing - Healthy Eating Habits Will attend diet classes:: Yes Outcomes/Goals:: Consume diet rich in vegs,fruits,whole grain/high fiber,fish,lean meat, Limit sat/trans fats,cholesterol & added salts & sugars Intervention/Plan:: Assess current eating habits - Education Gave educational materials for:: Healthy eating Nutrition - 90-Day Assessment Nutrition - Final Assessment Medical - Initial Assessment Medical- 30-Day Assessment Medical- 60-Day Assessment - Visit Date of Eval: 08/26/21 Session #:: 23 - Medication Compliance Preventative Medication(s):: Aspirin, Ticagrelor/P2Y12 inhibitor, Statin/lipid, Beta flavio H/O mental health issues: depression, anxiety, or addiction?: No Doesn?t believe in the benefits of treatment?: No Believes medications are unnecessary or harmful?: No Has a concern about medication side effects?: No Outcomes/Goals: Verbalizes medications,desired effect & common side effects @ DC, Pt self-reports following medication regimen, Keeps card in wallet w /medications listed by DC Interventions/plans: Instruct on medication effects & side effects, Review medication list w/patient every two weeks, Instruct importance of taking meds as ordered & assist problem solving 30-day Reassessments:: Progressing - Tobacco Use Tobacco Use: Non-smoker - Hypertension Hypertension Diagnosis:: Hypertension ICD-10 I10 Resting Blood Pressure:: 126/80 [place] [employer] Hypertension Guidelines: [place] [employer] Hypertension Guidelines. Normal BP Less than 120/80. Elevated BP 120/80. Hypertension Stage 1: BP 130-139/80-89. Hypertesnion Stage 2: BP 140 or higher/90 or higher. Hypertension Crisis: BP higher than 180/120 Peak Exercise Blood Pressure:: 140/78 Outcomes/Goals: Able to verbalize/achieve optimal blood pressure <130/80, Incorporates diet changes & exercise for blood pressure control by DC Interventions/plan: Instruct on optimal blood pressure, hypertension & medications, Instruct on effects of sodium, alcohol, stress, exercise &hypertension 30 day Reassessments:: Progressing - Tobacco Cessation Referral Smoking Cessation Referral:: No Individual Education/Counseling:: No Education Schedule Given:: Yes Medical- 90-Day Assessment Medical - Final Assessment Psychosocial - Initial Assess Psychosocial - 30-Day Assess Psychosocial - 60-Day Assess - VIsit Date of Eval: 08/26/21 Session #:: 23 Not Applicable: Yes History of previous Mental disease:: No - Psychosocial Test Tool Used:: PHQ-9 Questionnaire phq-9 Severity: Severity. 1-4 Minimal Depression. 5-9 Mild Depression. 10-14 Moderate Depression. 15-19 Moderately Sever Depression. 20-27 Severe Depression. Rule: - Referral to Behavioral Health PS - Interventions: Yes Attend Stress Management Classes, No Referral to Behavioral Health if PHQ-9 score >9:, No Referral to [facility], No Referral to Physician if PHQ-9 if score is 5-9: - Outcomes/Goals: See list Psychosocial Outcomes/Goals:: ID's personal stressors & 2 strategies to manage stress by discharge - Intervention/Plan: See List Interventions/Plan:: Assess stressors,coping strategies & signs of derpression on admission, Instruct/assist pt to develop coping & personal stress Mgt strategies, Instruct patient to recognize signs & symptoms of depression, Instruct patient to recog - 30-day Reassessments: 30 day Reassessments:: Met Psychosocial - 90-Day Assess Psychosocial - Final Assessmen Patient Health Questionnaire 60-Day Re-eval Assessment 1. Little interest or pleasure in doing things: Not at all 2. Feeling down, depressed, or hopeless: Not at all 3. Trouble falling or staying asleep, or sleeping too much: Not at all 4. Feeling tired or having little energy: Not at all 5. Poor appetite or overeating: Not at all 6. Feeling bad about yourself -- or that you are a failure or have let yourself or your family down: Not at all 7. Trouble concentrating on things, such as reading the newspaper or watching television: Not at all 8. Moving or speaking so slowly that other people could have noticed. Or the opposite - being so fidgety or restless that you have been moving around a lot more than usual: Not at all 9. Thoughts that you would be better off , or of hurting yourself in some way: Not at all How difficult have these problems made it for you to do your work, take care of things at home, or get along with other people?: Not difficult at all Total Score: 0 Self-Efficacy 60-Day Re-eval Assessment We would like to know how confident you are in doing certain activities. Please select your confidence level for:: Select your confidence level for the following using the scale 1-10 where 1 is not at all confident and 10 is totally confident. Your score is the average of all 6 responses. Fatigue: How confident are you that you can keep the fatigue caused by your disease from interfering with the things you want to do? Select Number: 10 Physical Discomfort or Pain: How confident are you that you can keep the physical discomfort or pain of your disease from interfering with the things you want to do? Select Number: 10 Emotional Distress: How confident are you that you can keep the emotional distress caused by your disease from interfering with the things you want to do? Select Number: 10 Other Symptoms or Health Problems: How confident are you that you can keep other symptoms or health problems from interfering with the things you want to do? Select Number: 10 Different Tasks and Activities: How confident are you that you can do the different tasks and activities needed to manage your health condition so as to reduce your need to see a doctor? Select Number: 10 Medication: How confident are you that you can do things other than just taking medication to reduce how much your illness affects your everyday life? Select Number: 10 Total Score:: 10 Nutrition Survey
[2021-08-26 08:58] VITALS: BP 126/80; BP 140/78; BMI 39.4
== END 2021-09-04 23:59 ==
LOC: CR 08:00
PROVIDERS: PCP Family Medicine; Referring Provider Internal Medicine Cardiovascular Disease; Visit Provider Internal Medicine Cardiovascular Disease
DX: I25.10 Atherosclerotic heart disease of native coronary artery without angina pectoris (principal); Z95.5 Presence of coronary angioplasty implant and graft; I10 Essential (primary) hypertension; E78.5 Hyperlipidemia, unspecified; R06.00 Dyspnea, unspecified; Z86.711 Personal history of pulmonary embolism
CPT/HCPCS: 93798

== ENCOUNTER 2021-09-28 09:00 | Outpatient (RCR) | payer BC, SELFPAY ==
[2021-08-26 08:58] VITALS: BMI 39.4
[2021-09-05 00:07] VITALS: BMI 37.8
== END 2021-10-04 23:59 ==
LOC: NS 09:00
PROVIDERS: PCP Family Medicine; Visit Provider Internal Medicine Cardiovascular Disease
DX: Z71.3 Dietary counseling and surveillance (principal); E66.9 Obesity, unspecified; K21.9 Gastro-esophageal reflux disease without esophagitis; I10 Essential (primary) hypertension; E78.5 Hyperlipidemia, unspecified; Z68.38 Body mass index [BMI] 38.0-38.9, adult
CPT/HCPCS: 97803

== ENCOUNTER 2021-10-03 08:00 | Outpatient (RCR) | payer BC, SELFPAY ==
[2021-08-26 08:58] VITALS: BMI 39.4
[2021-09-05 00:25] VITALS: BP 106/74; BP 126/80; BP 140/78; BMI 37.8
--- NOTE | 2021-09-28 14:48 | CR.ITP_ITS ---
Diagnosis Exercise - Final/Discharge - Visit Date of Eval: 09/28/21 Session #:: 33 - Physician Prescribed Exercise Modalities: Treadmill, Biodyne - BIodyne has been replaced with a SciFit Lateral [facility], NuStep Frequency: 3x/week for 12 weeks [36 sessions] Intensity: 60-80% of age predicted maximum heart rate reserve Current METSs:: 7.5 Target Heart Rate:: 111-146 Current RPE:: 12-13 Maximum Excercise HR:: 121 Resting Blood Pressure: 122/84 Maximum Exercise Blood Pressure: 132/72 EKG Type: NSR to sinus tach without ectopy - Outcomes & Goals Goals:: Verbalizes understanding of THR, RPE & goal METS by session 6, Documents in home exercise log/reports 30 min aerobic 5 day/wk by DC, Demonstrates accurate pulse taking by DC - Intervention & Plan Exercise Program Goals: Instruct on personal THR & RPE, Instruct on MET level & personal MET goal, Show patient to take own pulse /validate performance until accurate, Instruct on home exercise - 30-day Reassessments 30 day Reassessments:: Met - Physical Activity Home Exercise Physical Activity - Home Exercise: Safe Exercise, Warm-up, Self-monitoring, Cool-Down, Home Exercise > 30 min Daily, Sitting Time <3 hours/daily - Outcomes & Goals Outcomes/Goals: Demonstrates correct Warm-up/exercise Cool-Down (S3) if = 2.5 METs, Verbalizes symptoms of exercise intolerance by Session 3 (S3), Demonstrate safe equipment use (S3) & follows exercise prescrition (6) - Intervention & Plan Plan/Intervention: Instruct warm-up & cool-down if exercising at > 2 METs, Instruct on symptoms of exercise intolerance & actions to take, Instruct & monitor on saf, Assess intial functional capacity & safety risk - 30-day Reassessments 30 day Reassessments:: Met Nutrition - Initial Assessment Nutrition - 30-Day Assessment Nutrition - 60-Day Assessment Nutrition - 90-Day Assessment Nutrition - Final Assessment - Program Goals Nutrition Program Goals: LDL <100 optimal. 100 - 129 Near optimal. 130 - 159 Borderline High. 160 - 189 High. Total Cholesterol <200 desirable. 200 - 239 Borderline High. >/= 240 High. HDL < 40 Low >/=60 High. Triglycerides <150 desirable. <199 optimal. VlDL 5 - 40. HgbA1C <7%. BMI <25 Patient has diagnosis of Hyperlipidemia (ICD E78)?: Yes - Visit Date of Assessment:: 09/28/21 - t Session #:: 33 - Cholesterol/Lipids Determine presence & major risk factors that modify LDL goal: Hypertension or hypertensive medication, Family history of premature CHD in Male < 55 years: female <65 yearsFa, Age men > 45 years; women >/= 55 years Outcomes/Goals: Pt IDs own risk factors & lifestyle modifications by Session 10, Verbalizes symptoms of angina & response by session 3., Pt independently manages Intervention/Plan: Instruct on personal lipid levels & lipid goals/NCEP guidelines, Instruct on cholesterol 30-day Reassessments:: Progressing - Diabetes (Other Core Measures) Diabetes Type: Not Applicable - Weight Mgt (Other Care) Not Applicable: No Height: 5 ft 2 in Weight:: 215 lb 8 oz BMI: 39.4 Diagnosis Overweight/Obesity BMI> 30% ICD-10 E66: Yes Diagnosis High BMI/Morbid Obesity BMI> 35% ICD-10 Z68: Yes Outcomes/Goals: Pt sets, maintains & shows weight loss goal & trend during rehab Intervention/Plan: Instruct on ideal BMI & set weight loss goal w/patient, Assist pt to ID & incorporate diet changes for weight loss by S9, Encourage goal of using 250-300dcal per session for weight loss 30 day Reassessments:: Progressing - Healthy Eating Habits Will attend diet classes:: Yes Outcomes/Goals:: Consume diet rich in vegs,fruits,whole grain/high fiber,fish,lean meat, Limit sat/trans fats,cholesterol & added salts & sugars Intervention/Plan:: Assess current eating habits 30-day Reassessments:: Progressing - Education Gave educational materials for:: Healthy eating Medical - Initial Assessment Medical- 30-Day Assessment Medical- 60-Day Assessment Medical- 90-Day Assessment Medical - Final Assessment - Visit Date of Eval: 09/28/21 Session #:: 33 - Medication Compliance Preventative Medication(s):: Ticagrelor/P2Y12 inhibitor, Statin/lipid H/O mental health issues: depression, anxiety, or addiction?: No Doesn?t believe in the benefits of treatment?: No Believes medications are unnecessary or harmful?: No Has a concern about medication side effects?: No Expresses concern over the cost of medications?: No Outcomes/Goals: Verbalizes medications,desired effect & common side effects @ DC, Pt self-reports following medication regimen, Keeps card in wallet w/medications listed by DC Interventions/plans: Instruct on medication effects & side effects, Review medication list w/patient every two weeks, Instruct importance of taking meds as ordered & assist problem solving 30-day Reassessments:: Met - Tobacco Use Tobacco Use: Non-smoker - Hypertension Hypertension Diagnosis:: Hypertension ICD-10 I10 Resting Blood Pressure:: 122/84 [employer] Hypertension Guidelines: [employer] Hypertension Guidelines. Normal BP Less than 120/80. Elevated BP 120/80. Hypertension Stage 1: BP 130-139/80-89. Hypertesnion Stage 2: BP 140 or higher/90 or higher. Hypertension Crisis: BP higher than 180/120 Peak Exercise Blood Pressure:: 132/72 Outcomes/Goals: Able to verbalize/achieve optimal blood pressure <130/80, Incorporates diet changes & exercise for blood pressure control by DC Interventions/plan: Instruct on optimal blood pressure, hypertension & medications, Instruct on effects of sodium, alcohol, stress, exercise &hypertension 30 day Reassessments:: Progressing - Tobacco Cessation Referral Smoking Cessation Referral:: No Individual Education/Counseling:: No Education Schedule Given:: Yes Psychosocial - Initial Assess Psychosocial - 30-Day Assess Psychosocial - 60-Day Assess Psychosocial - 90-Day Assess Psychosocial - Final Assessmen - VIsit Date of Eval: 09/28/21 Session #:: 33 Not Applicable: Yes History of previous Mental disease:: No - Psychosocial Test Tool Used:: SeamBLiSS QOL Cardiac, PHQ-9 Questionnaire phq-9 Severity: Severity. 1-4 Minimal Depression. 5-9 Mild Depression. 10-14 Moderate Depression. 15-19 Moderately Sever Depression. 20-27 Severe Depression. Rule: - Referral to Behavioral Health PS - Interventions: Yes Attend Stress Management Classes, No Referral to Behavioral Health if PHQ-9 score >9:, No Referral to [facility], No Referral to Physician if PHQ-9 if score is 5-9: - Outcomes/Goals: See list Psychosocial Outcomes/Goals:: ID's personal stressors & 2 strategies to manage stress by discharge - Intervention/Plan: See List Interventions/Plan:: Assess stressors,coping strategies & signs of derpression on admission, Instruct/assist pt to develop coping & personal stress Mgt strategies, Instruct patient to recognize signs & symptoms of depression, Instruct patient to recog - 30-day Reassessments: 30 day Reassessments:: Progressing Patient Health Questionnaire Discharge Assessment 1. Little interest or pleasure in doing things: Not at all 2. Feeling down, depressed, or hopeless: Not at all 3. Trouble falling or staying asleep, or sleeping too much: Not at all 4. Feeling tired or having little energy: Not at all 5. Poor appetite or overeating: Not at all 6. Feeling bad about yourself -- or that you are a failure or have let yourself or your family down: Not at all 7. Trouble concentrating on things, such as reading the newspaper or watching television: Not at all 8. Moving or speaking so slowly that other people could have noticed. Or the opposite - being so fidgety or restless that you have been moving around a lot more than usual: Not at all 9. Thoughts that you would be better off , or of hurting yourself in some way: Not at all Total Score: 0 Self-Efficacy Discharge Assessment We would like to know how confident you are in doing certain activities. Please select your confidence level for:: Select your confidence level for the following using the scale 1-10 where 1 is not at all confident and 10 is totally confident. Your score is the average of all 6 responses. Fatigue: How confident are you that you can keep the fatigue caused by your disease from interfering with the things you want to do? Select Number: 10 Physical Discomfort or Pain: How confident are you that you can keep the physical discomfort or pain of your disease from interfering with the things you want to do? Select Number: 10 Emotional Distress: How confident are you that you can keep the emotional distress caused by your disease from interfering with the things you want to do? Select Number: 10 Other Symptoms or Health Problems: How confident are you that you can keep other symptoms or health problems from interfering with the things you want to do? Select Number: 10 Different Tasks and Activities: How confident are you that you can do the different tasks and activities needed to manage your health condition so as to reduce your need to see a doctor? Select Number: 10 Medication: How confident are you that you can do things other than just taking medication to reduce how much your illness affects your everyday life? Select Number: 10 Total Score:: 10 Nutrition Survey
[2021-09-28 14:56] VITALS: BP 122/84; BP 132/72; BMI 39.4
== END 2021-10-04 23:59 ==
LOC: CR 08:00
PROVIDERS: PCP Family Medicine; Referring Provider Internal Medicine Cardiovascular Disease; Visit Provider Internal Medicine Cardiovascular Disease
DX: I25.10 Atherosclerotic heart disease of native coronary artery without angina pectoris (principal); Z95.5 Presence of coronary angioplasty implant and graft; I26.99 Other pulmonary embolism without acute cor pulmonale; I10 Essential (primary) hypertension; E78.5 Hyperlipidemia, unspecified; R06.00 Dyspnea, unspecified
CPT/HCPCS: 93798

== ENCOUNTER 2021-10-10 08:00 | Outpatient (RCR) | payer BC, SELFPAY ==
[2021-09-28 14:56] VITALS: BMI 39.4
[2021-10-05 00:30] VITALS: BP 122/84; BP 132/72; BMI 37.8
== END 2021-11-04 23:59 ==
LOC: CR 08:00
PROVIDERS: PCP Family Medicine; Referring Provider Internal Medicine Cardiovascular Disease; Visit Provider Internal Medicine Cardiovascular Disease
DX: I25.10 Atherosclerotic heart disease of native coronary artery without angina pectoris (principal); Z95.5 Presence of coronary angioplasty implant and graft; I26.99 Other pulmonary embolism without acute cor pulmonale; I10 Essential (primary) hypertension; E78.5 Hyperlipidemia, unspecified; R06.00 Dyspnea, unspecified
CPT/HCPCS: 93798

== ENCOUNTER 2021-12-27 07:24 | Outpatient (CLI) | payer BC, SELFPAY ==
[2021-09-28 14:56] VITALS: BMI 39.4
--- NOTE | 2021-12-27 07:32 | CT_ITS ---
EXAM: CT CHEST WITHOUT INTRAVENOUS CONTRAST : 1970 CLINICAL INDICATION: SHAIKH, lung nodules., cc copy to drs. santiago and vielka TECHNIQUE: Helically acquired images were obtained of the chest without intravenous contrast. This CT exam was performed using one or more of the following dose reduction techniques: automated exposure control, adjustment of the mA and/or kV according to patient size, and/or use of iterative reconstruction technique. This report was created using [employer] report generation technology. COMPARISON: 01/16/2021 FINDINGS: LUNGS AND PLEURAL SPACES: There are scattered noncalcified pulmonary nodules seen primarily in the right middle and lower lobes. There is also a pleural-based nodule in the left lower lobe. These are not significantly changed from the reference examination. The largest nodule is in the left lower lobe and measures 5 mm. Fleischner Society Guidelines for low-risk patients, no follow-up is necessary. For high-risk patients (smoking history or other known risk factors) an optional chest CT at 12 months could be performed. No pneumothorax. HEART: There are coronary artery calcifications. Heart size is normal. No pericardial effusion. MEDIASTINUM: Unremarkable. No mediastinal or hilar adenopathy. Esophagus is unremarkable. No hiatal hernia. THYROID: Unremarkable. No thyroid lesions. BONES/JOINTS: Unremarkable. No suspicious lytic or blastic abnormality. VASCULATURE: Unremarkable. Thoracic aorta is non-dilated. CT/Chest without Contrast IMPRESSION: 1. No acute pulmonary abnormality. 2. Scattered well-circumscribed noncalcified pulmonary nodules which likely represent granulomas. Individualized dose optimization techniques were used for this CT. at 1150 Reported and signed by: Jose Hamm MD Electronically Signed: Jose Hamm MD at 11:49 EST ,
--- NOTE | 2021-12-28 10:22 | PFT_ITS ---
INTRODUCTION: The patient is a 51-year-old female that presents for pulmonary function studies secondary to a diagnosis of dyspnea on exertion. Respiratory therapy reported good patient effort. Bronchodilators were used during testing. INTERPRETATION: Forced expiration spirometry demonstrates no evidence of a large airways obstructive ventilatory defect. There was a significant response to aerosolized bronchodilators. Spirograms are of good quality and plateau normally. The respiratory flow volume loop is normal. Body plethysmography was performed and reveals lung volumes to be within normal limits. Diffusing capacity by single breath CO is also within normal limits. IMPRESSION: Possible stigmata of small airways disease with significant bronchodilator resp onse. Normal lung volumes and diffusing capacity.
== END 2021-12-27 23:59 | disposition home or self-care (01) ==
PROVIDERS: PCP Family Medicine; Referring Provider Family Medicine; Visit Provider Family Medicine
DX: R06.02 Shortness of breath (principal); R91.8 Other nonspecific abnormal finding of lung field
CPT/HCPCS: 71250; 94060; 94726; 94729

== ENCOUNTER 2022-10-06 08:00 | Outpatient (RCR) | payer BC, SELFPAY ==
[2021-09-28 14:56] VITALS: BMI 39.4
--- NOTE | 2022-07-06 09:53 | HP.PTEVAL_ITS ---
Patient's Visit Information BANDAR FRANCISCO is a 52 year old F referred to Physical Therapy by Dr. Lon Flores MD with a diagnosis of Glut Pain. Date of Evaluation: 07/06/22 Physical Therapist: Shantelle Childress DPT - Visit Plan Frequency: 2x /Week Duration: 4 Weeks Plan: Aquatics: Focus on LE and core strength/stabilization- centralized symptoms - Subjective Patient reports she has left sided pain that starts in her back and down her leg. She went to [place] and was sleeping on the floor and then could not get back up. Came home- went to the MD had a cortisone injection Dr. Raymond in the left gluts- injection made the nerve pain sharper- 2 weeks ago. She feels the pain is staying the same. Sleep: disturbed- right side she is okay but left or back she is miserable- the last few nights she was sleeping in the recliner. Describes as dull and achy but if she moves wrong it will grab her. Does have N/T down the whole leg. Worst: 8/10 Agg: bending, reaching down. Eases: riding the mini bike- thinks its the vibration. There is always a dull ache- laying down is very painful. Throbbing in the calf. She does not lay on her belly as she was told it was bad for you. No loss or change in bowel or bladder. No X-rays or MRI. Work: [employer]- she sits for 12 hours a day- no lifting. PMHx/Meds: no changes since oncology note in May 2022. - Objective Posture: FH, RS- can correct with verbal and tactile cues but does not maintain. Gait: slightly antalgic- increased pelvic translation. Stairs: asc/desc 8 recip with 2 HR- poor control with descent and increase UE use on rails for asc. HR.TR: able with UE A. SLS: 5-8 seconds with moderate pelvic drop. Palpation: tender along greater troch and down the ITband and along glut med to the sacrum. ROM: Lumbar: all motions decreased by 25%- reports increased pain with flexion and extension. Hip: WFL. Strength: Core: fair minus, Hip: flexion: 4-/5, Abd/Add/Extn: 4/5, IR/ER: 4-/5, Knee: 4+/5, Ankle: 5/5. Flex: Gastroc: moderate, Hamstring: moderate, Piriformis: moderate. Special Test: positioning testing: all motions increased pain in supine and standing. - Special Tests L/S Slump test left side: Positive L/S Left Straight Leg Raise: Positive - Balance/Special Test Scores Lower Extremity Functional Score: 58 - Goals Goal 1:: Patient will be I with HEP and progression Goal Time Frame: 4-6 Weeks Goal 2:: Patient will maintain proper posture t/o tx session to demo increased core s/s Goal Time Frame: 4-6 Weeks Goal 3:: Patient will report no radicular s/s Goal Time Frame: 4-6 Weeks Goal 4:: Patient will report 80% improvement Goal Time Frame: 4-6 Weeks - Rehabilitation Potential Physical Therapy Diagnosis: Patient presents with hypomobility- she has decreased pain free ROM, LE and core strength/stabilization, flex and muscular endurance leading to poor posture and increased pain with ADL's. Rehabilitation Potential: Good - Anticipated Interventions Patient/Client Instruction: Educate patient on: Benefits of Fitness Program Therapeutic Exercise to Include: Power training, Endurance training, Balance training, Coordination, Agility training, Body mechanics, Postural training, Flexibilty training, Gait and locomotor training, Neuromotor development, In an aquatic setting, Dynamic Lumbar Stabilization, Scapular Strength/Stabilization For the Purpose of:: To improve muscle performance and motor function Thank you for the opportunity to evaluate your patient. For Medicare and Medicare HMO plans, please review the plan of care and approve it. It will need to be FAXED BACK to us at [phone] for Medicare purposes. For Medicare only, by signing this I certify the plan of care. Please let me know if there are questions or concerns regarding this plan of care. Physician Signature: Date:
--- NOTE | 2022-08-16 13:24 | HP.PTREVAL ---
Dr. Lon Flores MD, It has been my pleasure to treat BANDAR FRANCISCO over the last 10 visits for Glut Pain. Please see the progress note below for an update on the physical therapy plan of care! Subjective: Patient reports that the nerve pain is almost all gone- she does have occasional N/T but now its just in the buttocks. The pain is there all the time. Last Sunday she left here and went for a mile hike and sunday 2 mile hike- on sunday night she was almost pain free. But when she got up in the AM. 7/10 in the left buttocks. Does not have an apt to go back to the MD. She feels that she would like to continue for a few more session- with a transition to land. She has been trying to stretch it and roll it but its challenging. Objective/Function: Posture: FH, RS- can correct with verbal and tactile cues but does not maintain. Gait: no deviation noted HR.TR: able with UE A. SLS: 10 seconds with mild pelvic drop. ROM: Lumbar: WFL in all planes Hip: WFL. Strength: Core: fair minus, Hip: flexion: 4+/5, Abd/Add/Extn: 4+/5, IR/ER: 4-/5, Knee: 5/5, Ankle: 5/5. Flex: Gastroc: moderate, Hamstring: moderate, Piriformis: moderate. Plan Plan: 08/16/22: Continue with POC with progression to land- 2x a week for 3 weeks for hip and core s/s. *f/u with supervising PT next. Would recommend transition to land PT to develop home HEP d/t pt's preference and consistency with this in the past. Aquatics: Focus on LE and core strength/stabilization- centralized symptoms Balance/Gait/Functional tests - Balance/Special Test Scores Lower Extremity Functional Score: 71 Goals Goal 1:: Patient will be I with HEP and progression Goal Time Frame: 4-6 Weeks Goal 2:: Patient will maintain proper posture t/o tx session to demo increased core s/s Goal Time Frame: 4-6 Weeks Goal 3:: Patient will report no radicular s/s Goal Time Frame: 4-6 Weeks Goal 4:: Patient will report 80% improvement Goal Time Frame: 4-6 Weeks Anticipated Interventions Patient/Client Instruction: Educate patient on: Benefits of Fitness Program Therapeutic Exercise to Include: Power training, Endurance training, Balance training, Coordination, Agility training, Body mechanics, Postural training, Flexibilty training, Gait and locomotor training, Neuromotor development, In an aquatic setting, Dynamic Lumbar Stabilization, Scapular Strength/Stabilization For the Purpose of:: To improve muscle performance and motor function Please do not hesitate to contact me at [phone] by phone or if you have questions or concerns regarding this new plan of care! Sincerely, ESPINOZA LarsenT
--- NOTE | 2022-10-06 09:03 | HP.PTREVAL ---
Dr. Lon Flores MD, It has been my pleasure to treat BANDAR FRANCISCO over the last 20 visits for Glut Pain. Please see the progress note below for an update on the physical therapy plan of care! Subjective: Pt reports that her mornings are still the worse. Still getting N/T from the calf muscle down, states no symptoms in HS. Objective/Function: Did well with exercise selection above, Only exercise to cause irritation to glutes were squat to rows this date, otherwise remained asymptomatic throughout. Pt is able to relieve discomfort with piriformis stretch or HSS. Plan Plan: 09/20/22: Continue 2x a week for 4 weeks. 08/16/22: Continue with POC with progression to land- 2x a week for 3 weeks for hip and core s/s Balance/Gait/Functional tests - Balance/Special Test Scores Lower Extremity Functional Score: 71 Goals Goal 1:: Patient will be I with HEP and progression Goal Time Frame: 4-6 Weeks Goal Progress: Goal Met Goal 2:: Patient will maintain proper posture t/o tx session to demo increased core s/s Goal Time Frame: 4-6 Weeks Goal Progress: Progressing Goal 3:: Patient will report no radicular s/s Goal Time Frame: 4-6 Weeks Goal Progress: Progressing Goal 4:: Patient will report 80% improvement Goal Time Frame: 4-6 Weeks Goal Progress: Progressing Anticipated Interventions Patient/Client Instruction: Educate patient on: Benefits of Fitness Program Therapeutic Exercise to Include: Power training, Endurance training, Balance training, Coordination, Agility training, Body mechanics, Postural training, Flexibilty training, Gait and locomotor training, Neuromotor development, In an aquatic setting, Dynamic Lumbar Stabilization, Scapular Strength/Stabilization For the Purpose of:: To improve muscle performance and motor function Please do not hesitate to contact me at [phone] by phone or if you have questions or concerns regarding this new plan of care! Sincerely, Nataliya Licea, PT, Cert MDT
--- NOTE | 2023-01-10 12:25 | HP.PT.NRP ---
BANDAR FRANCISCO was seen in my office for initial evaluation on 07/06/22. The following Plan of Care was established for this patient: Initial Frequency: 2x /Week Initial Duration: 4 Weeks Patient/Client Instruction: Educate patient on: Benefits of Fitness Program Therapeutic Exercise to Include: Power training, Endurance training, Balance training, Coordination, Agility training, Body mechanics, Postural training, Flexibilty training, Gait and locomotor training, Neuromotor development, In an aquatic setting, Dynamic Lumbar Stabilization, Scapular Strength/Stabilization For the Purpose of:: To improve muscle performance and motor function This patient was last seen in our office . Pertinent comments regarding their Physical therapy will appear below: Patient has not attended PT in over 30 days- appropriate to discharge chart At this point I will be discontinuing this patient from physical therapy. I would be happy to see this patient again in the future if found appropriate by the physician. Thank you! Shantelle Childress, ESPINOZAT Balance/Gait/Functional tests - Balance/Special Test Scores Lower Extremity Functional Score: 71
== END 2022-10-06 19:00 | disposition home or self-care (01) ==
LOC: PT 08:00
PROVIDERS: PCP Family Medicine; Referring Provider Family Medicine; Visit Provider Family Medicine
DX: M76.00 Gluteal tendinitis, unspecified hip (principal)
CPT/HCPCS: 97110; 97113; 97162; 97164

== ENCOUNTER → 2022-12-28 | Outpatient (CLI) | payer BC, SELFPAY ==
[2021-09-28 14:56] VITALS: BMI 39.4
--- NOTE | 2022-12-28 13:20 | RAD_ITS ---
INDICATION: BRONCHITIS EXAMINATION/TECHNIQUE: X-RAY - XR Chest 2 Views COMPARISON: 03/18/2021. FINDINGS: The lungs are clear. The cardiomediastinal silhouette is unremarkable. No pleural effusion or pneumothorax. No acute osseous abnormalities. RAD/Chest PA and Lateral IMPRESSION: No acute radiographic abnormalities. Electronically Signed: Efrem Overton MD at 18:06 EST ,
== END | disposition home or self-care (01) ==
LOC: RAD 13:15
PROVIDERS: PCP Family Medicine; Visit Provider Family Medicine
DX: J40 Bronchitis, not specified as acute or chronic (principal)
CPT/HCPCS: 71046

== ENCOUNTER → 2023-01-18 | Outpatient (CLI) | payer BC, SELFPAY ==
[2021-09-28 14:56] VITALS: BMI 39.4
[2023-01-18 08:44] LABS: Absolute Lymphocyte Count 2.06 X10^3/uL (0.83-4.51); Absolute Neutrophil Count 6.5 X10^3/uL (2.0-7.7); Basophil# 0.05 X10^3/uL; Basophil% 0.5 % (0-1); Eosinophil# 0.27 X10^3/uL; Eosinophils% 2.8 % (0-5); Hematocrit 42.6 % (37-47); Hemoglobin 13.5 g/dL (12.0-15.0); Lymphocyte # 2.06 X10^3/ul (0.83-4.51); Lymphocyte % 21.5 % (19-41); Mean Corp Hgb Conc 31.7 g/dL (32-36); Mean Corpuscular Hgb 26.3 pg (27.0-32.0); Mean Platelet Vol. 9.8 fl (6.2-12.0); Monocyte% 7.3 % (0-10); NRBC Flagged by Analyzer 0 % (0-5); Neutrophil # 6.46 X10^3/uL (2.7-7.7); Neutrophil % 67.3 % (47-70); Platelet Count 339 K/mm3 (150-450); RBC Distribution Width CV 16.1 % (11.6-14.6); Red Blood Count 5.13 M/mm3 (4.2-5.4); White Blood Count 9.6 K/mm3 (4.4-11.0)
[2023-01-21 14:07] LABS: Aspirgillus flavus Negative (Neg:<1:1); Aspirgillus fumigatus Negative (Neg:<1:1); Aspirgillus niger Negative (Neg:<1:1)
[2023-01-21 15:07] LABS: Alternaria tenuis <0.10 kU/L (Class 0); Ash, White 2.76 kU/L (Class III); Aspergillus fumigatus <0.10 kU/L (Class 0); Bermuda Grass 2.07 kU/L (Class III); Birch 1.36 kU/L (Class II); Black Walnut 2.15 kU/L (Class III); Cat Hair / Dander,Stand <0.10 kU/L (Class 0); Cedar, Mountain 0.24 kU/L (Class 0/I); Cladosporium herbarum <0.10 kU/L (Class 0); Cockroach, American <0.10 kU/L (Class 0); Cottonwood 0.89 kU/L (Class II); D farinae Mite <0.10 kU/L (Class 0); D pteronyssinus <0.10 kU/L (Class 0); Dog Epithelia <0.10 kU/L (Class 0); Immunoglobulin E 5 IU/mL (6-495); Mulberry, White <0.10 kU/L (Class 0); Oak, White 1.05 kU/L (Class II); Pecan 1.33 kU/L (Class II); Penicillium Notatum <0.10 kU/L (Class 0); Pigweed, Rough 1.04 kU/L (Class II); Ragweed, Short/Common 0.87 kU/L (Class II); Sheep Sorrel 1.72 kU/L (Class III); Sycamore, American 0.94 kU/L (Class II); Timothy Grass 0.29 kU/L (Class 0/I)
[2023-01-22 12:23] LABS: Immunoglobulin E 8 IU/mL (6-495); Mouse Urine <0.10 kU/L (Class 0)
== END | disposition home or self-care (01) ==
LOC: PAVLAB 08:16
PROVIDERS: PCP Family Medicine; Referring Provider Internal Medicine Critical Care Medicine; Visit Provider Internal Medicine Critical Care Medicine
DX: J45.909 Unspecified asthma, uncomplicated (principal)
CPT/HCPCS: 36415; 82785; 85025; 86003; 86606

== ENCOUNTER 2023-05-04 08:35 | Day surgery (SDC) | payer BC, SELFPAY ==
[2021-09-28 14:56] VITALS: BMI 39.4
[2023-05-04] VITALS (7 sets, daily range): BP systolic 119–134; BP diastolic 82–84; PULSE 72–78; RESP 14–18; TEMP 36.4–36.8; O2SAT 93–98; BMI 42.6
[2023-05-04] MEDS: Lactated Ringers 1,000 ML 15 ML IV (09:10)
[2023-05-04 09:23] LABS: Internal QC Validated? YES +Cl - CLEAR BKGD; Pregnancy, Serum, hCG Quali. NEGATIVE Negative
--- NOTE | 2023-05-04 10:20 | HP.PCM_ITS ---
HPI - General HPI Narrative BANDAR FRANCISCO, is a 52 F who presents for screening colonoscopy. The patient has never had a colonoscopy in the past. She denies abdominal pain or blood in the stool. Her father had a colectomy for cancer but they said it was not colon origin. [facility] Medical History (Updated 05/02/23 @ 16:08 by Brittney Bustos) Arthritis Asthma Atherosclerotic heart disease of [place] coronary artery without angina pectoris Back pain Cardiology follow-up encounter Dyspnea on exertion Essential hypertension Former smoker GERD (gastroesophageal reflux disease) History of echocardiogram History of edema History of heart attack History of non-ST elevation myocardial infarction (NSTEMI) History of pain when walking History of stress test Hyperlipemia Hypertension Presence of stent in coronary artery (~01/11/21) Pulmonary emboli Rheumatoid arthritis Salmonella Seasonal allergies Shortness of breath on exertion Wears dentures Wears glasses Home Medications aspirin 81 mg chewable tablet 81 mg PO DAILY 01/16/21 [History Last Taken Unknown] metoprolol tartrate 25 mg tablet 25 mg PO QHS 01/16/21 [History Last Taken Unknown] famotidine 40 mg tablet 40 mg PO QHS 03/21/22 [History Last Taken Unknown] nitroglycerin 0.4 mg sublingual tablet 0.4 mg sublingual Q5M PRN chest pain #25 tabs 03/21/22 [Rx Last Taken Unknown] norethindrone (contraceptive) 0.35 mg tablet 0.35 mg PO DAILY 03/21/22 [History Last Taken Unknown] albuterol sulfate 90 mcg/actuation aerosol inhaler (Ventolin HFA) 2 puff inhalation Q4H PRN shortness of breath or wheezing 01/18/23 [History Last Taken Unknown] azelastine 137 mcg (0.1 %) nasal spray aerosol 2 spray intranasal BID #30 mL 01/18/23 [Rx Last Taken Unknown] fluticasone propionate 50 mcg/actuation nasal spray,suspension (Flonase Allergy Relief) 2 spray intranasal QDAY #16 grams 01/18/23 [Rx Last Taken Unknown] mometasone-formoterol HFA 200 mcg-5 mcg/actuation aerosol inhaler (Dulera) 2 puff inhalation BID #13 grams 01/18/23 [Rx Last Taken Unknown] tizanidine 2 mg capsule 2 mg PO TID PRN muscle spasticity 02/26/23 [History Last Taken Unknown] fexofenadine 180 mg tablet (Susan Allergy) 180 mg PO DAILY 03/09/23 [History Last Taken Unknown] Lactobacillus acidophilus 10 billion cell capsule (Probiotic) 100 mmu cells PO DAILY 05/02/23 [History Last Taken Unknown] montelukast 10 mg tablet 10 mg PO QHS 05/02/23 [History Last Taken Unknown] pantoprazole 40 mg tablet,delayed release 40 mg PO QHS 05/02/23 [History Last Taken Unknown] Allergy/AdvReac Type Severity Reaction Status Date / Time cinnamon Allergy Food Verified 05/02/23 15:54 Allergy pollen extracts Allergy Rhinitis Verified 05/02/23 15:54 raw vegetable AdvReac Intermediate Itching Verified 05/02/23 15:54 tree nut AdvReac Intermediate Itching Verified 05/02/23 15:54 fresh fruit and vegetables AdvReac Intermediate Itching Uncoded 03/09/23 13:11 Family History (Updated 03/09/23 @ 12:44 by Holly Roe) Mother Alzheimer disease Mother Diabetes Mother Heart disease Mother Skin cancer Father Cancer Colon cancer Surgical History (Updated 05/02/23 @ 16:08 by Brittney Bustos) H/O dilation and curettage History of cardiac catheterization History of heart artery stent Hx of tonsillectomy Presence of coronary angioplasty implant and graft (~01/11/21) Social History Smoking Status: Former smoker Tobacco: How many years used: 8 how long ago did patient quit smokin second hand exposure: No alcohol intake: never substance use type: does not use caffeine: Yes Type: coffee Number of servings: 3 rayne/restoration: Moravian seatbelt use: always do you feel safe at home: Yes Past Medical/Surgical History Planned Operation Planned Operative Procedure/s: CSCOPE OA Previous Hospitalizations/Surgeries HX Hospitalizations: No Any Problems With Anesthesia: No You/Your Family Experience Fever (Hyperthermia) With Anes: No Cholinesterase deficiency: No Cardiovascular Hx Chest Pain within Last 2 months: Yes Hx of Irregular Heartbeat and/or Afib: No Hx Heart Attack: Yes Hx Hypertension: Yes (CONTROLLED WITH MED) Hx Cardiac Catheterization: Yes What facility was last heart cath performed: [facility] Date of last Heart Cath: [facility] Hx Cardiac Surgery/Stents/Etc.: Yes Hx Pain in Legs when Walking/Leg Cramps: No Respiratory Hx Chronic Obstructive Pulmonary Disease (COPD): No Hx Emphysema: No Hx Sleep Apnea: No Hx Respiratory Tract Infection/Cold (presently): No Do You Snore Loudly (louder than talking or can be heard): Yes Do You Often Feel Tired/ Fatigued/ Sleepy Dring Daytime?: Yes Has Anyone Observed You Stop Breathing During Sleep?: No Result (for STOP score): Positive Hx Smoking: Yes Smoking Status: Former smoker Gastrointestinal Hx Gastroesophageal Reflux: Yes Controlled With Meds: Yes Hx Gastrointestinal Bleed: No Hx Ulcer: No Special diet followed at home: No Hx Unplanned Weight Loss of 20#: No Neurological Hx Seizures: No Hx Multiple Sclerosis: No Hx Parkinson's Disease: No Does patient have nerve stimulator: No Blood Disorder Hx Hepatitis: No Hx Cirrhosis: No Hx Anemia: No Hx Blood Disorders: No Reproduction : No Genitourinary Hx Renal Disease: No Hx Dialysis: No Musculoskeletal Hx Arthritis: No Hx Rheumatoid Arthritis: Yes Endocrine Hx Diabetes: No Thyroid Disease: No Psycho/Social Hx Substance Use: No Hx Alcohol Use: No Hx Anxiety: No Hx Depression: No Hx Dementia: No Miscellaneous Hx Cancer: No Recent Exposure to Contagious Disease: No Allergies cinnamon Allergy (Verified 05/02/23 15:54) Food Allergy Lips peel pollen extracts Allergy (Verified 05/02/23 15:54) Rhinitis raw vegetable Adverse Reaction (Intermediate, Verified 05/02/23 15:54) Itching tree nut Adverse Reaction (Intermediate, Verified 05/02/23 15:54) Itching fresh fruit and vegetables Adverse Reaction (Intermediate, Uncoded 03/09/23 13:11) Itching itching in mouth Maternal: Family History (Updated 03/09/23 @ 12:44 by Holly Roe) Mother Alzheimer disease Mother Diabetes Mother Heart disease Mother Skin cancer Father Cancer Colon cancer Cancer (Mother with history of skin cancer.), Diabetes, Heart Disease (Mother with a history of NH at age 77.) and - (Mother with also a history of blood clots.) Paternal: Family History (Updated 03/09/23 @ 12:44 by Holly Roe) Mother Alzheimer disease Mother Diabetes Mother Heart disease Mother Skin cancer Father Cancer Colon cancer Cancer (Father with reported history of cancer in his colon however this was felt not to be primary.) and Hypertension Discharge Is Pt Admitted From a [facility], or a [facility]: No After D/C, Where Do you Plan to Go: Return Home Vital Signs Vital Signs Vital Signs: 05/04/23 09:11 05/04/23 09:11 Temperature 98.1 F Temperature Source Temporal Pulse Rate 78 Respiratory Rate 18 Respiratory Pattern Normal Blood Pressure 134/84 H Blood Pressure Mean 100 Blood Pressure Source Monitor Blood Pressure Position Semi-Fowlers Blood Pressure Location Left Arm Pulse Ox 98 Oxygen Delivery Method Room Air Weight Weight: 233 lb Body Mass Index (BMI) 42.6 Physical Exam Const alert and oriented x3 HEENT normocephalic Eyes PERRL Resp normal respiratory effort and normal air movement Cardio regular rate and regular rhythm GI soft to palpation, non-tender and non-distended Extremity normal to inspection Assessment & Plan Assessment/Plan (1) Encounter for screening for malignant neoplasm of colon: PLAN: I explained endoscopy in detail to the patient. I explained the risks including but not limited to stroke or heart attack with anesthesia, perforation of the GI tract, bleeding, infection. I explained that any of these could necessitate further emergency surgery. The patient understands and all questions were answered sufficiently. The patient wishes to proceed with procedure. Barrie Rene MD Pager: [facility] [address] [place] [address], [address] [place] [address] Office: Surgery Risks - Colonoscopy Risks Include but are not Limited To: Risks include but are not limited to: Bleeding, perforation requiring further surgery, inability to complete colonoscopy requiring barium enema.
--- NOTE | 2023-05-04 10:51 | OP.COLON_ITS ---
Patient Name: Jessica Miller Procedure Date: 05/04/2023 10:22 AM Date of : 1970 Age: 52 Procedure: Colonoscopy Indications: Screening for colorectal malignant neoplasm Providers: Barrie Rene MD Referring MD: Barrie Rene MD Medicines: Monitored Anesthesia Care Patient Profile: This is a 52 year old female. Refer to note in patient chart for documentation of history and physical. Last Colonoscopy: none. The patient's first colonoscopy is today. Complications: No immediate complications. Procedure: Pre-Anesthesia Assessment: - Prior to the procedure, a History and Physical was performed, and patient medications and allergies were reviewed. The patient's tolerance of previous anesthesia was also reviewed. The risks and benefits of the procedure and the sedation options and risks were discussed with the patient. All questions were answered, and informed consent was obtained. Prior Anticoagulants: The patient has taken no previous anticoagulant or antiplatelet agents. After reviewing the risks and benefits, the patient was deemed in satisfactory condition to undergo the procedure. After I obtained informed consent, the scope was passed under direct vision. Throughout the procedure, the patient's blood pressure, pulse, and oxygen saturations were monitored continuously. The Colonoscope was introduced through the anus and advanced to the cecum, identified by appendiceal orifice and ileocecal valve. The colonoscopy was performed without difficulty. The patient tolerated the procedure well. The quality of the bowel preparation was good. Scope In: 10:33:01 AM Scope Withdrawal Time 0 hours 6 minutes 55 seconds Scope Out: 10:49:43 AM Total Procedure Duration Time 0 hours 16 minutes 42 seconds Findings: The entire examined colon appeared normal on direct and retroflexion views. Impression: - The entire examined colon is normal on direct and retroflexion views. - No specimens collected. Recommendation: - Discharge patient to home. - Resume previous diet. - Continue present medications. - Repeat colonoscopy in 10 years for screening purposes. Procedure Code(s): --- Professional --- 12745, Colonoscopy, flexible; diagnostic, including collection of specimen(s) by brushing or washing, when performed (separate procedure) Diagnosis Code(s): --- Professional --- Z12.11, Encounter for screening for malignant neoplasm of colon CPT copyright 2017 [employer]. All rights reserved. The codes documented in this report are preliminary and upon financial reporting specialist review may be revised to meet current compliance requirements. Barrie Rene MD 05/04/2023 10:50:44 AM This report has been signed electronically. Number of Addenda: 0 Note Initiated On: 05/04/2023 10:22 AM
--- NOTE | 2023-05-04 10:52 | OP.CCLET_ITS ---
05/04/2023 Lon Flores [address] [place] [address] Re : Colonoscopy procedure for Jessica Angela Dear Dr. Flores This procedure was performed on Thursday, May 04, 2023. My impressions and recommendations are as follows: Impressions : - The entire examined colon is normal on direct and retroflexion views. - No specimens collected. Recommendations : - Discharge patient to home. - Resume previous diet. - Continue present medications. - Repeat colonoscopy in 10 years for screening purposes. My findings are described in the full procedure note, which is enclosed. If I can be of further assistance, please feel free to contact me at Doctor phone number(s): , Work: . Sincerely, Barrie Rene MD 05/04/2023 10:50:44 AM This report has been signed electronically.
== END 2023-05-04 11:46 | disposition home or self-care (01) ==
LOC: EN 08:38 → AC 08:39
PROVIDERS: Anesthesiology; PCP Family Medicine; Referring Provider Surgery; Visit Provider Surgery
PROC: 0DJD8ZZ Inspection of Lower Intestinal Tract, Via Natural or Artificial Opening Endoscopic (ICD-10-PCS; CPT 45378; principal; 2023-05-04 09:40)
DX: Z12.11 Encounter for screening for malignant neoplasm of colon (principal); M06.9 Rheumatoid arthritis, unspecified; I25.10 Atherosclerotic heart disease of native coronary artery without angina pectoris; E78.5 Hyperlipidemia, unspecified; I10 Essential (primary) hypertension; I25.2 Old myocardial infarction; K21.9 Gastro-esophageal reflux disease without esophagitis; Z95.5 Presence of coronary angioplasty implant and graft; Z79.82 Long term (current) use of aspirin; Z79.899 Other long term (current) drug therapy; Z87.891 Personal history of nicotine dependence; Z86.711 Personal history of pulmonary embolism; Z80.0 Family history of malignant neoplasm of digestive organs
CPT/HCPCS: 45378; 84703; J7120; J2405

== ENCOUNTER → 2023-11-09 | Outpatient (CLI) | payer BC, SELFPAY ==
[2021-09-28 14:56] VITALS: BMI 39.4
--- OUTSIDE RECORDS SUMMARY | 2023-11-09 09:18 | XMS RPT_ITS | CCD ---
Author Name Unknown Address [address] [place] [address] [address] [place] [address] Organization [facility] Care Team Providers Care Tool Pusher Name Role Phone Lon Flores Unavailable Unavailable Unavailable Dr. Jenny Rodarte Attending Dr. Jenny Estevez Referring Dr. Lon Aponte Primary Care Unavailable Dr. Lon Flores Primary Care Unavailable Jenny Rodarte Referring Jenny Swartz Attending Dr. Lon Vigil Primary Care Unavailable Jenny Rodarte Referring Jenny Swartz Attending Dr. Lon Vigil Primary Care Unavailable Jenny Rodarte Attending Jenny Swartz Attending Dr. Lon Vigil Primary Care Unavailable Medications Completed/Discontinued Medications Medication Drug Class(es) Dates Sig (Normalized) Sig (Original) aspirin 81 mg delayed release oral tablet (7 sources) Platelet Aggregation Inhibitor, Nonsteroidal Anti-inflammatory Drug take 1 tablet by mouth once daily Aspirin Adult Low Dose 81 MG Oral Tablet Delayed Release TAKE 1 TAB BY MOUTH ONCE DAILY Quantity: 0 Refills: 0 Ordered: 26-Jan-2021 DO Active atorvastatin 40 mg oral tablet (7 sources) HMG-CoA Reductase Inhibitor take 1 tablet by mouth once daily Atorvastatin Calcium 40 MG Oral Tablet TAKE 1 TABLET BY MOUTH DAILY Quantity: 90 Refills: 3 Ordered: 26-Jan-2021 DO Active famotidine 40 mg oral tablet (7 sources) Histamine-2 Receptor Antagonist Start: 03-21-2021 Famotidine 40 MG Oral Tablet Quantity: 90 Refills: 0 Ordered: 11-Sep-2021 DO Start : 21-Mar-2021 Active metoprolol tartrate 25 mg oral tablet (7 sources) beta-Adrenergic Cheri take 1 tablet by mouth twice daily Metoprolol Tartrate 25 MG Oral Tablet TAKE 1 TABLET BY MOUTH TWICE DAILY Quantity: 0 Refills: 1 Ordered: 26-Jan-2021 DO Active norethindrone 0.35 mg oral tablet (7 sources) Start: 02-11-2021 take 1 tablet by mouth once daily Norethindrone 0.35 MG Oral Tablet TAKE 1 TABLET DAILY. Quantity: 4 Refills: 2 Ordered: 09-Mar-2023 Jenny Rodarte MD Start : 11-Feb-2021 Active pantoprazole 40 mg delayed release oral tablet (7 sources) Proton Pump Inhibitor Pantoprazole Sodium 40 MG Oral Tablet Delayed Release Quantity: 0 Refills: 0 Ordered: 27-Sep-2021 DO Active ticagrelor 90 mg oral tablet (7 sources) take 1 tablet by mouth twice daily Brilinta 90 MG Oral Tablet TAKE 1 TABLET TWICE DAILY DIRECTED. Quantity: 60 Refills: 8 Ordered: 26-Jan-2021 DO Active Problems Active Problems Problem Classification Problem Date Documented Date Episodic/Chronic Cancer of cervix (9 sources) Low grade squamous intraepithelial lesion on cervical Papanicolaou smear; Translations: [Papanicolaou smear of cervix with low grade squamous intraepithelial lesion (LGSIL)] Onset: 03-28-2022 Episodic Coronary atherosclerosis and other heart disease (7 sources) Angina pectoris; Translations: [Other and unspecified angina pectoris] Chronic Menstrual disorders (7 sources) Menorrhagia; Translations: [Excessive or frequent menstruation] Chronic Other lower respiratory disease (7 sources) Nodule of lung; Translations: [Solitary pulmonary nodule] Episodic Other and delivery including normal (7 sources) Delivery normal; Translations: [Normal delivery] Episodic Past or Other Problems Problem Classification Problem Date Documented Da te Episodic/Chronic Unclassified (7 sources) Finding of menstrual bleeding; Translations: [Menstruation] Results Test Name Value Interpretation Reference Range Facil ity Vital Signs Date Time Vital Sign Value Performing Clinician Faci lity 10-06-2022 14:44-0500 Body height 157.48 cm Lon Flores Work Phone: [address] Work Phone: 10-06-2022 14:44-0500 Body mass index (BMI) [Ratio] 41.94 kg/m2 Lon Flores Work Phone: [address] Work Phone: 10-06-2022 14:44-0500 Body surface area Derived from formula 2.03 m2 Lon A Flores Work Phone: [address] Work Phone: 10-06-2022 14:44-0500 Body weight 104 kg Lon A Flores Work Phone: [place] [address] [place] Work Phone: 10-06-2022 14:44-0500 Diastolic blood pressure 74 mm[Hg] Lon A Flores Work Phone: [place] [address] [place] Work Phone: 10-06-2022 14:44-0500 Systolic blood pressure 126 mm[Hg] Lon Tita [employer] Work Phone: [address] Work Phone: 03-28-2022 09:02-0400 Body height 157.48 cm Lon Tita [facility] Phone: [place] [address] [place] Work Phone: 03-28-2022 09:02-0400 Body mass index (BMI) [Ratio] 39.96 kg/m2 Lon Tita [employer] Work Phone: [address] Work Phone: 03-28-2022 09:02-0400 Body surface area Derived from formula 1.98 m2 Lon A Flores Work Phone: [place] [address] [employer] Work Phone: 03-28-2022 09:02-0400 Body weight 99.1 kg Lon A [facility] Phone: [place] [address] [place] Work Phone: 03-28-2022 09:02-0400 Diastolic blood pressure 72 mm[Hg] Lon A [employer] Work Phone: [address] Work Phone: 03-28-2022 09:02-0400 Systolic blood pressure 126 mm[Hg] Lon Rivers Mark Work Phone: [place] [address] [place] Work Phone: 09-27-2021 13:00-0500 Body height 157.48 cm Lon Tita Flores Work Phone: [place] [address] [employer] Work Phone: 09-27-2021 13:00-0500 Body mass index (BMI) [Ratio] 39.44 kg/m2 Lon Tita Flores Work Phone: [address] Work Phone: 09-27-2021 13:00-0500 Body surface area Derived from formula 1.97 m2 Lon Tita Flores Work Phone: [address] Work Phone: 09-27-2021 13:00-0500 Body temperature 95.9 [degF] Lon Tita Flores [employer] Phone: [address] Work Phone: 09-27-2021 13:00-0500 Body weight 97.8 kg Lon Tita Flores [employer] Phone: [address] Work Phone: 09-27-2021 13:00-0500 Diastolic blood pressure 74 mm[Hg] Lon Tita Flores [employer] Phone: [address] Work Phone: 09-27-2021 13:00-0500 Systolic blood pressure 118 mm[Hg] Lon Rivers Mark [employer] Phone: [address] Work Phone: Encounters Encounter Date Encounter Type Care Provider Facility Start: 03-08-2023 AUDIT Lon Rivers [facility] Work Phone: Start: 10-17-2022 Chart Update Lon Flores Work Phone: [facility] Work Phone: Start: 10-13-2022 Chart Update Lon Flores Work Phone: [facility] Work Phone: Start: 10-13-[address] Jenny Rodarte Facility:[id number] Start: 10-06-2022 Encounter for gynecological examination (general) (routine) without abnormal findings Jenny Rodarte [facility] Start: 10-06-2022 Encounter for gynecological examination (general) (routine) without abnormal findings Jenny Rodarte Facility:[facility] Start: 10-06-2022 ambulatory Jenny Rodarte Fa cility:[facility] Start: 04-12-2022 Chart Update Lon Flores Work Phone: [facility] Work Phone: Start: 03-28-2022 Office outpatient vi sit 15 minutes Lon Flores [facility] Work Phone: Start: 03-28-[address] Lon Flores Facili ty:[facility] Start: 10-11-2021 Chart Update Lon Flores Work Phone: [facility] Work Phone: Start: 09-27-2021 Periodic preventive med est patient 40-64yrs Lon Flores Work [facility] Work Phone: Encounter for gynecological examination (general) (routine) without abnormal findings Lon Flores Work Phone: [facility] Work Phone: Procedures Date Procedure Procedure Detail Performing Clinician Start: 01-11-2021 Echocardiography Cardiac catheterization Lon Flores Work Phone: Plan of Treatment Date Care Activity Detail Author Start: 10-12-2023 Patient encounter procedure ANNUAL, Provider: Jenny Rodarte, Status: Pen, Time: 9:30 AM [facility] Work Phone: Start: 10-03-2022 PAPREPEAT, Provider: Jenny Rodarte, Status: Pen, Time: 9:30 AM PAPREPEAT, Provider: Jenny Rodarte, Status: Pen, Time: 9:30 AM [facility] [address] [employer] Work Phone: Start: 03-28-2022 PAPREPEAT, Provider: Jenny Rodarte, Status: Pen, Time: 9:00 AM PAPREPEAT, Provider: Jenny Rodarte, Status: Pen, Time: 9:00 AM [facility] [address] [employer] Work Phone: Payers Date Payer Category Payer Unknown [id number] 1970 Unknown [id number] 1970 Unknown [id number] [id number] 1972 Unknown [id number] [id number]. [id number] 1972 Unknown [id number] [id number]. [id number] 1972 Unknown [id number] [id number]. [id number] Unknown ANTHEM Social History Date Type Detail Facility No alcohol use No alcohol use [facility] Work Phone: Clinical Note 10-06-2022 Note Date & Type Note Facility 10-06-2022 Note 50 Date of Procedure: 10/06/2022 Pathologist: [facility], Cytology Date Reported: 10/17/2022 Date Received: 10/06/2022 Submitting Physician: JENNY RODARTE MD FINAL CYTOLOGICAL INTERPRETATION A. THINPREP PAP CERVICAL: Specimen adequacy: SATISFACTORY FOR EVALUATION. Quality Indicator: Endocervical/transformation zone component is present. General Categorization: NEGATIVE FOR INTRAEPITHELIAL LESION OR MALIGNANCY. HIGH RISK HPV TEST RESULT: HPV GENOTYPE 16 NEGATIVE HPV GENOTYPE 18 NEGATIVE HPV GENOTYPE OTHER NEGATIVE Reference Range: Negative Slide(s) initially screened by a Basting Puller at [facility], [address] [place] [address] QC review performed at [facility], [address] [place] [id number] Testing for high-risk (HR) type of human papilloma virus (HPV) is performed by the Matty shaka HPV Test. The shaka HPV Test is a qualitative polymerase chain reaction that amplifies DNA of HPV16, HPV18 and 12 other high-risk HPV types (31, 33, 35, 39, 45, 51, 52, 56, 58, 59, 66, and 68) associated with cervical cancer and its precursor lesions. A positive result indicates the presence of HPV DNA due to one or more of the 14 genotypes: 16, 18, 31, 33, 35, 39, 45, 51, 52, 56, 58, 59, 66, and 68. Negative results indicate HPV DNA concentrations are undetectable or below the pre-set threshold for detection. False negative results may be associated with unoptimized sampling. A negative HR HPV result does not exclude the possibility of future cytologic HSIL or underlying CIN2-3 or cancer. This test is approved for cervical specimens by the US Food and Drug Administration. Results of this test should be interpreted in conjunction with the patient?s Pap test results. Please refer to ASCCP current guidelines for the use of HPV DNA testing, result interpretation, and patient management. The performance of this test was verified by the Molecular Diagnostic Laboratory at [facility]. The lab is certified under the Clinical Laboratory Amendments of 1988 (CLIA 88) as qualified to perform high complexity clinical laboratory testing. This specimen has been analyzed by the [employer] what's in [employer] Imaging System ([employer] an automated imaging and review system, which assists the laboratory in evaluating cells on ThinPrep Pap tests. Following automated imaging, selected lopez from every slide were reviewed by a beauty director and/or pathologist. Electronically Signed Out By [facility], Cytology//LSM/JMD By the signature on this report, the individual or group listed as making the Final Interpretation/Diagnosis certifies that they have reviewed this case. Diagnostic interpretation performed at [facility] [address] [facility] [place] [address] Educational Note: Cervical cytology is a screening procedure primarily for squamous cancers and precursors and has associated false-negative and false-positive results as evidenced by published data. Your patient?s test should be interpreted in this context, together with patient?s history and clinical findings. Regular sampling and follow-up of unexplained clinical signs and symptoms are recommended to minimize false negative results. Clinical History Date of Last Menstrual Period: 02/2021 Other Clinical Conditions: COTEST HPV(Genotype) except for ASC-H, HSIL, Carcinoma - Include HPV Genotype testing Annual Clinical Diagnosis History: Encounter for Papanicolaou smear of cervix - (Z12.4); Women's annual routine gynecological examination - (Z01.419) Source of Specimen A: THINPREP PAP CERVICAL [facility] Department of Pathology [address] [place] [address] Clinical Note 03-28-2022 Note Date & Type Note Facility 03-28-2022 Note 73 Date of Procedure: 03/28/2022 Pathologist: LUCIO HUIZAR DO Date Reported: 04/12/2022 Date Received: 03/28/2022 Submitting Physician: JENNY RODARTE MD FINAL CYTOLOGICAL INTERPRETATION Squamous and/or Glandular Abnormality A. THINPREP PAP CERVICAL: Specimen adequacy: SATISFACTORY FOR EVALUATION. Quality Indicator: Endocervical/transformation zone component is present. Quality Indicator: Partially obscuring inflammation. General Categorization: EPITHELIAL CELL ABNORMALITY - SQUAMOUS CELL. See Interpretation. Descriptive Interpretation: ATYPICAL SQUAMOUS CELLS OF UNDETERMINED SIGNIFICANCE (ASC-US) - CERVIX. HIGH RISK HPV TEST RESULT: HPV GENOTYPE 16 NEGATIVE HPV GENOTYPE 18 NEGATIVE HPV GENOTYPE OTHER NEGATIVE Reference Range: Negative Slide(s) initially screened by a Basting Puller at [facility], [address] [place] [address] Testing for high-risk (HR) type of human papilloma virus (HPV) is performed by the Matty shaka HPV Test. The shaka HPV Test is a qualitative polymerase chain reaction that amplifies DNA of HPV16, HPV18 and 12 other high-risk HPV types (31, 33, 35, 39, 45, 51, 52, 56, 58, 59, 66, and 68) associated with cervical cancer and its precursor lesions. A positive result indicates the presence of HPV DNA due to one or more of the 14 genotypes: 16, 18, 31, 33, 35, 39, 45, 51, 52, 56, 58, 59, 66, and 68. Negative results indicate HPV DNA concentrations are undetectable or below the pre-set threshold for detection. False negative results may be associated with unoptimized sampling. A negative HR HPV result does not exclude the possibility of future cytologic HSIL or underlying CIN2-3 or cancer. This test is approved for cervical specimens by the US Food and Drug Administration. Results of this test should be interpreted in conjunction with the patient?s Pap test results. Please refer to ASCCP current guidelines for the use of HPV DNA testing, result interpretation, and patient management. The performance of this test was verified by the Molecular Diagnostic Laboratory at [facility]. The lab is certified under the Clinical Laboratory Amendments of 1988 (CLIA 88) as qualified to perform high complexity clinical laboratory testing. This specimen has been analyzed by the ThinPrep Imaging System ([employer] an automated imaging and review system, which assists the laboratory in evaluating cells on ThinPrep Pap tests. Following automated imaging, selected lopez from every slide were reviewed by a beauty director and/or pathologist. Electronically Signed Out By LUCIO HUIZAR DO/DIONISIO/PARMINDER By the signature on this report, the individual or group listed as making the Final Interpretation/Diagnosis certifies that they have reviewed this case. Diagnostic interpretation performed at [facility] [address] [facility] [place] [address] Educational Note: Cervical cytology is a screening procedure primarily for squamous cancers and precursors and has associated false-negative and false-positive results as evidenced by published data. Your patient?s test should be interpreted in this context, together with patient?s history and clinical findings. Regular sampling and follow-up of unexplained clinical signs and symptoms are recommended to minimize false negative results. Clinical History Date of Last Menstrual Period: Menopause Other Clinical Conditions: COTEST HPV(Genotype) except for ASC-H, HSIL, Carcinoma - Include HPV Genotype testing Annual Clinical Diagnosis History: Low grade squamous intraepithelial lesion (LGSIL) on cervical Pap smear - (O75.224) Source of Specimen A: THINPREP PAP CERVICAL [facility] Department of Pathology [id number] [place] [address] History of Present illness Narrative 02-03-2021 Note Date & Type Note Facility 02-03-2021 History of Presen t illness Narrative Patient presents for repeat Pap smear due to history of mild dysplasia of the cervix. She has not had a menstrual flow since February 2021. She is currently on a progestin only control pills. [employer] Work Phone: History of Present illness Narrative Note Date & Type Note Facility History of Present illness Narrative Presents for annual exam. She voices no complaints and is doing well. Denies any bowel or bladder problems. Denies any breast problems. She is doing well on the control pills. [employer] Work Phone: Summary Purpose Family History Unknown Family Member Name Dates Details Family history of myocardial infarction: Mother(V17.3, Z82.49) Status:Active Family history of Alzheimer' s disease: Mother(V17.2, Z82.0) Status:Active Family history of diabetes m ellitus: Mother(V18.0, Z83.3) Status:Active Family history of malignant neoplasm of colon: Father(V16.0, Z80.0) Status:Active Unknown Family Member Name Dates Details Family history of malignant neoplasm of colon: Father(V16.0, Z80.0) Status:Active Family history of diabetes m ellitus: Mother(V18.0, Z83.3) Status:Active Family history of Alzheimer' s disease: Mother(V17.2, Z82.0) Status:Active Family history of myocardial infarction: Mother(V17.3, Z82.49) Status:Active Unknown Family Member Name Dates Details Family history of myocardial infarction: Mother(V17.3, Z82.49) Status:Active Family history of Alzheimer' s disease: Mother(V17.2, Z82.0) Status:Active Family history of diabetes m ellitus: Mother(V18.0, Z83.3) Status:Active Family history of malignant neoplasm of colon: Father(V16.0, Z80.0) Status:Active Unknown Family Member Name Dates Details Family history of myocardial infarction: Mother(V17.3, Z82.49) Status:Active Family history of Alzheimer' s disease: Mother(V17.2, Z82.0) Status:Active Family history of diabetes m ellitus: Mother(V18.0, Z83.3) Status:Active Family history of malignant neoplasm of colon: Father(V16.0, Z80.0) Status:Active Unknown Family Member Name Dates Details Family history of myocardial infarction: Mother(V17.3, Z82.49) Status:Active Family history of Alzheimer' s disease: Mother(V17.2, Z82.0) Status:Active Family history of diabetes m ellitus: Mother(V18.0, Z83.3) Status:Active Family history of malignant neoplasm of colon: Father(V16.0, Z80.0) Status:Active Unknown Family Member Name Dates Details Family history of myocardial infarction: Mother(V17.3, Z82.49) Status:Active Family history of Alzheimer' s disease: Mother(V17.2, Z82.0) Status:Active Family history of diabetes m ellitus: Mother(V18.0, Z83.3) Status:Active Family history of malignant neoplasm of colon: Father(V16.0, Z80.0) Status:Active Unknown Family Member Name Dates Details Family history of myocardial infarction: Mother(V17.3, Z82.49) Status:Active Family history of Alzheimer' s disease: Mother(V17.2, Z82.0) Status:Active Family history of diabetes m ellitus: Mother(V18.0, Z83.3) Status:Active Family history of malignant neoplasm of colon: Father(V16.0, Z80.0) Status:Active Advance Directives No Advanced Directives Records FoundNo Advanced Directives Records FoundNo Advanced Directives Records FoundNo Advanced Directives Records FoundNo Advanced Directives Records FoundNo Advanced Directives Records FoundNo Advanced Directives Records Found Hospital Course Note Send Summary: Discharge Summ juan Providers: Provider RoleProvider Name ReferringTin Luis AttendingForTin carusoPoJosé Miguel flowers Eric A Note Recipients: Tin Luis MD Luong, Hao, DO Smith, Lon Rivers MD - [id number] [] Discharge: Summary: Admission Date: .11-Jan-2021 00:13:00 Discharge Date: 12-Jan-2021 Attending Physician at Discharge: Tin Luis Admission Reason: Chest pain, NSTEMI(1) Final Discharge Diagnoses: Status post percutaneous transluminal coronary angioplasty Procedures: Left heart catheterization and coronary angiogram with PCI of LAD with one drug-eluting stent on January 11, 2021 through right radial approach Condition at Discharge: Satisfactory Disposition at Discharge: .Home Vital Signs: T PRBPSpO2 [id number]/7397% Date/Time01/12 4: 4: 4: 4: 4:30 Range(36.7C - 37.4C ) (78 - 95 ) (20 - 27 ) (120 - 138 )/ (62 - 84 ) (95% - 98% ) Highest temp of 37.4 C was recorded at 01/11 14:00 Date: W (more content not included)... Chief Complaint Patient is here for her yearly exam and pap test. LMP: 02/19/2021. Patient does not do regular selfbreast exams and has no concerns at this time.Patient is here for repeat pap. Patient has history of mild dysplasia. Menopause in February 2021. Additional Source Comments INFORMATION SOURCE (unrecogn ized section and content) DATE CREATED AUTHOR AUTHOR'S ORGANIZ ATION 04/13/2019 [facility] DATE CREATED AUTHOR AUTHOR'S ORGANIZ ATION [facility] DATE CREATED AUTHOR AUTHOR'S ORGANIZ ATION 01/26/2021 [facility] DATE CREATED AUTHOR AUTHOR'S ORGANIZ ATION 10/07/2022 [employer] DATE CREATED AUTHOR AUTHOR'S ORGANIZ ATION 10/14/2022 [facility] DATE CREATED AUTHOR AUTHOR'S ORGANIZ ATION 10/18/2022 [facility] FOR RECORDS PERTAINING TO PATIENTS WHO ARE OR HAVE BEEN ENROLLED IN A CHEMICAL DEPENDENCY/SUBSTANCEABUSE PROGRAM, SOME INFORMATION MAY BE OMITTED. This clinical summary was aggregated from multiple sources. Caution should be exercised in using it in the provision of clinical care. This summary normalizes information from multiple sources, and as a consequence, information in this document may materially change the coding, format and clinical context of patient data. In addition, data may be omitted in some cases. CLINICAL DECISIONS SHOULD BE BASED ON THE PRIMARY CLINICAL RECORDS. [facility]. provides no warranty or guarantee of the accuracy or completeness of information in this document.
[2023-11-09 11:26] LABS: Anion Gap 9 (5-15); BUN 13 mg/dL (7-18); BUN/Creat Ratio 15.7 RATIO (10-20); Calcium,Total 9.1 mg/dL (8.5-10.1); Chloride 109 mmol/L (98-107); Cholesterol 168 mg/dL (200); Creatinine, Serum 0.83 mg/dL (0.55-1.02); EST Glomerular Filtration Rate 77 mL/min (>60); Est Glom Filt Rate - Afr Amer 93 mL/min (>60); Glucose 88 mg/dL (74-106); High Density Lipoprotein 39 mg/dL; Potassium 4.2 mmol/L (3.5-5.1); Sodium Level 141 mmol/L (136-145); Triglycerides 71 mg/dL; Very Low Density Lipoprotein 14 mg/dL (5-40)
== END | disposition home or self-care (01) ==
LOC: MFPLAB 08:41
PROVIDERS: PCP Family Medicine; Visit Provider Nurse Practitioner Family
DX: Z13.220 Encounter for screening for lipoid disorders (principal); Z13.1 Encounter for screening for diabetes mellitus
CPT/HCPCS: 36415; 80048; 80061

== ENCOUNTER → 2024-12-26 | Outpatient (CLI) | payer BC, SELFPAY ==
[2021-09-28 14:56] VITALS: BMI 39.4
[2024-12-26 10:13] LABS: Absolute Lymphocyte Count 2.27 X10^3/uL (0.83-4.51); Absolute Neutrophil Count 5.1 X10^3/uL (2.0-7.7); Basophil# 0.07 X10^3/uL; Basophil% 0.8 % (0-1); Eosinophil# 0.18 X10^3/uL; Eosinophils% 2.1 % (0-5); Hematocrit 43.8 % (37-47); Hemoglobin 13.5 g/dL (12.0-15.0); Lymphocyte # 2.27 X10^3/ul (0.83-4.51); Lymphocyte % 26.9 % (19-41); Mean Corp Hgb Conc 30.8 g/dL (32-36); Mean Corpuscular Hgb 25.4 pg (27.0-32.0); Mean Corpuscular Volume 82.5 fL (81-99); Mean Platelet Vol. 9.9 fl (6.2-12.0); Monocyte# 0.75 X10^3/uL; Monocyte% 8.9 % (0-10); NRBC Flagged by Analyzer 0 % (0-5); Neutrophil # 5.13 X10^3/uL (2.7-7.7); Neutrophil % 60.9 % (47-70); Platelet Count 334 K/mm3 (150-450); RBC Distribution Width CV 16.2 % (11.6-14.6); RBC Distribution Width SD 47.8 fl (35.1-43.9); Red Blood Count 5.31 M/mm3 (4.2-5.4); White Blood Count 8.4 K/mm3 (4.4-11.0)
[2024-12-26 10:41] LABS: Hemoglobin A1c 6.3 % (3.8-5.6)
[2024-12-26 10:59] LABS: ALB/GLOB Ratio 0.7 RATIO (0.9-2.4); AST(SGOT) 24 U/L (15-37); Alanine Aminotransfer ALT/SGPT 36 U/L (13-56); Albumin, Serum 3.3 g/dL (3.2-5.0); Alkaline Phosphatase 82 U/L (45-117); Anion Gap 6 (5-15); BUN 14 mg/dL (7-18); BUN/Creat Ratio 15.7 RATIO (10-20); Calcium,Total 9.5 mg/dL (8.5-10.1); Chloride 107 mmol/L (98-107); Cholesterol 160 mg/dL (200); Creatinine, Serum 0.89 mg/dL (0.55-1.02); EST Glomerular Filtration Rate 70 mL/min (>60); Est Glom Filt Rate - Afr Amer 85 mL/min (>60); Globulin 4.8 g/dL (2.2-4.2); Glucose 95 mg/dL (74-106); High Density Lipoprotein 40 mg/dL; Potassium 4.1 mmol/L (3.5-5.1); Protein, Total 8.1 g/dL (6.4-8.2); Sodium Level 139 mmol/L (136-145); Triglycerides 95 mg/dL; Very Low Density Lipoprotein 19 mg/dL (5-40)
== END | disposition home or self-care (01) ==
LOC: MTLAB 07:17
PROVIDERS: PCP Family Medicine
DX: I25.10 Atherosclerotic heart disease of native coronary artery without angina pectoris (principal); E66.1 Drug-induced obesity; Z13.220 Encounter for screening for lipoid disorders; Z13.1 Encounter for screening for diabetes mellitus
CPT/HCPCS: 36415; 80053; 80061; 83036; 84443; 85025